=== PATIENT | male | born 1940 | race Caucasian/White ===

== ENCOUNTER 2023-10-24 20:38 | Emergency (ER) | payer MEDICARE, SELFPAY ==
[2023-10-24 20:42] VITALS: BP 151/63
[2023-10-24] MEDS: MOTRIN 600 MG PO (20:53)
[2023-10-24 21:29] LABS: % Basophils 0.6 % (0-2); % Eosinophils 0.9 % (0-6); % Immature Granulocytes 0.3 % (0-0.5); % Lymphocytes 8.3 % (20.5-51.1); % Neutrophils 82.9 % (42.2-75.2); Absolute Eosinophils 0.1 10^3/uL (0-0.7); Absolute Lymphocytes 0.6 10^3/uL (1.2-3.4); Absolute Monocytes 0.5 10^3/uL (0.1-0.6); Absolute Neutrophils 5.7 10^3/uL (1.4-6.5); Hematocrit 36.1 % (39.0-52.0); Mean Corp Hgb Conc. 33.2 g/dL (33.0-37.0); Mean Corpuscular Hgb 30.1 pg (27.0-31.0); Mean Corpuscular Volume 90.5 fL (80.0-94.0); Mean Platelet Volume 8.5 fL (7.4-10.4); Nucleated Red Blood Cells % 0 % (-); Platelet Count 243 10^3/uL (130-400); Red Blood Cell Count 3.99 10^6/uL (4.70-6.10); Red Cell Dist. Width 13.7 % (11.5-14.5); White Blood Cell Count 6.9 10^3/uL (4.8-10.8)
[2023-10-24 21:43] LABS: COVID-19 Antigen Negative (Negative); Lactic Acid 1.1 mmol/L (0.7-2.0)
[2023-10-24 21:57] LABS: ALT (SGPT) 30 U/L (0-50); AST (SGOT) 42 U/L (17-59); Albumin 4.5 g/dl (3.5-5.0); Alkaline Phosphatase 97 U/L (38-126); Blood Urea Nitrogen 21 mg/dl (9-20); Calcium 9.6 mg/dl (8.4-10.2); Carbon Dioxide 25 mmol/L (22-30); Glucose 122 mg/dl (70-99); Total Bilirubin 0.5 mg/dl (0.2-1.3); Total Protein 7.1 g/dl (6.3-8.2); eGFR 45.34
[2023-10-24 22:04] LABS: Chloride 101 mmol/L (98-107); Potassium 4.3 mmol/L (3.5-5.1); Sodium 137 mmol/L (135-145)
--- NOTE | 2023-10-24 23:19 | ED.GENMED ---
History of Present Illness
General
Chief Complaint: Fever
Source: patient
Exam Limitations: other
Time Seen by Provider: 10/24/23 23:07
Travel History
Have you had any contact with someone who has COVID-19?: No
Do you have any symptoms of coronavirus? Fever > 100 degrees, chills, cough, shortness of breath, sore throat, loss of taste or smell, muscle aches, or headache?: No
History of Present Illness
History of Present Illness:
This is a 83 year old male that comes in with c/o fever and feeling lightheaded. Son states that he has a tooth abscess and is taking antibiotics (Amoxicillin). States that he is to get the tooth out tomorrow. States that today he started with a
fever and told his son that he felt lightheaded. States that he has chills also today. Denies any chest pain, SOB, abd pain, nausea, vomiting, diarrhea, headache, urinary burning.
Past History
Past History
ED Past Medical History: None; Negative Asthma, HTN, Hypercholesterolemia or NIDDM
ED Past Surgical History: Cardiac (CABG)
Social History
Tobacco: Former smoker
Alcohol: None
Personal:
Living: with family
Review of Systems
Review of Systems
All Other Systems: ROS reviewed and negative except as documented in HPI and ROS
Constitutional: Reports fever and chills
EENT: Reports no symptoms
Respiratory: Denies cough or trouble breathing
Cardiac: Reports no symptoms; Denies chest pain
ABD/GI: Reports no symptoms; Denies abdominal pain, nausea, vomiting or diarrhea
: Reports no symptoms; Denies dysuria, frequency or urgency
Musculoskeletal: Reports no symptoms
Skin: Reports no symptoms
Neurological: Reports other (Lightheaded); Denies headache
Psychiatric: Reports no symptoms
Phy Exam
General Physical Exam
General Presentation: no apparent distress
General age: appears stated age
General Skin: warm and dry
General Habitus: elderly
General Mental: alert
General Hydration: appears well hydrated
ENT Exam
ENT Exam: TM's normal, pharynx normal and neck supple
Eye Exam
Eye Exam: EOMI
Cardiovascular Exam
Cardiovascular Exam: regular rate/rhythm, no edema, normal peripheral pulses and other (Murmur)
Pulmonary Exam
Pulmonary Exam: lungs clear, no respiratory distress, no rales, chest non tender, no crackles, no rhonchi, no wheezing and no cough
Gastrointestinal Exam
Gastrointestinal Exam: normal bowel sounds, non tender, soft, no organomegaly, no pulsatile mass and non distended
Musculoskeletal Exam
Musculoskeletal Exam: full ROM
Skin Exam
Skin Exam: normal color, warm/dry, no rash and no petechia
Psychiatric Exam
Psychiatric Exam: normal mood/affect
Course
Orders/Labs/Results
Orders:
Orders
10/24/23 20:47
CR Chest - 2 Views Urgent
Comment:
Reason For Exam: cough
10/24/23 20:50
Ibuprofen [Motrin] 600 mg PO NOW STA
10/24/23 21:13
COVID-19 Antigen Urgent
Source: Nasal Swab
Complete Blood Count/With Diff Urgent
Comprehensive Metabolic Panel Urgent
Lactic Acid Urgent
Blood Culture Urgent
TOÑA Source: Blood/Venous
Specimen Description:
Influenza A+B Rapid Molecular Urgent
TOÑA Source: Nasal Swab
Specimen Description:
10/24/23 23:19
0.9% Sodium Chloride 500 ml [Nss] 500 ml IV BOLUS
Acetaminophen [Tylenol] 1,000 mg PO NOW STA
10/24/23 23:32
Urinalysis Reflex To Culture Urgent
Date Specimen was Collected: 10/24/23
Time Specimen was Collected: 23:22
Urine Microscopic Reflex Cult Urgent
Abnormal Lab Results
10/24/23 10/24/23
21:13 23:32
RBC 3.99 L 10^6/uL
(4.70-6.10)
Hgb 12.0 L g/dL
(13.0-18.0)
Hct 36.1 L %
(39.0-52.0)
Absolute Lymphs (auto) 0.6 L 10^3/uL
(1.2-3.4)
Neutrophils % 82.9 H %
(42.2-75.2)
Lymphocytes % 8.3 L %
(20.5-51.1)
BUN 21 H mg/dl
(9-20)
Creatinine 1.5 H mg/dL
(0.7-1.3)
Glucose 122 H mg/dl
(70-99)
Ur Occult Blood Reflex Trace A
(Negative)
Urine RBC 3-6 A /HPF
(0-2)
Urine Bacteria (Reflex) Few A
(Negative)
10/24/23 21:13
10/24/23 21:13
H/H slightly low. Dehydration. Lactic acid normal at 1.1, COVID and influenza negative.
Vital Signs
Initial and Last Documented VS:
Initial Vital Signs
Temp Pulse Resp BP Pulse Ox
101.9 F H 80 20 151/63 95
10/24/23 20:42 10/24/23 20:42 10/24/23 20:42 10/24/23 20:42 10/24/23 20:42
Last Documented Vital Signs
Temp Pulse Resp BP Pulse Ox
101.9 F H 80 20 151/63 95
10/24/23 20:42 10/24/23 20:42 10/24/23 20:42 10/24/23 20:42 10/24/23 20:42
MDM/Problems Addressed
Differential Diagnosis Includes:
Viral syndrome. Dental abscess
MDM/Problems Addressed:
This is a 83 year old male that comes in with c/o fever and lightheadedness according to son. States that he has a dental abscess and is to have the tooth removed tomorrow. States that he started with Fever and chills today and said that he was
lightheaded.
Will check labs, Chest x-ray, COVID and influenza. Will also given IV fluids and Tylenol.
Back into see patient. Explained that his blood work only shows slight dehydration. His Lactic acid is normal along with his COVID and influenza. Patient's urine is negative. Feel that this may be related to his abscess tooth which he is to have
extracted tomorrow and is taking Amoxicillin for or is a viral syndrome. Will discharge patient home and have him follow up with the family doctor. Patient to continue to push the fluids and use Tylenol 1000mg every 6 hours for fever. Return with
any concerns.
Chronic conditions affecting care:
NA
Acute Exacerbation and/or Progression of Chronic Illness:
NA
*Pulse Oximetry
Patient hypoxic: no
*EKG
Interpreted by ED Provider?: NA
Rate: EKG- N/A
*Electronic Device Monitor Interpretation
Rate: Electronic Device Monitor- N/A
*Critical Care Note
Total Time (30-74mins, 75-104mins- exclusive of procedures): Not Applicable
ED Attending Note
-
Portions of this chart may have been created with voice recognition software.� Occasional wrong word or��sound alike� substitutions may have occurred due to the inherent limitations of voice recognition software.
Discharge Plan
Departure
Patient Disposition: Home (Routine Discharge)
Date of Disposition: 10/25/23
Time of Disposition: 00:29
Patient with high blood pressure during this ER visit?: Yes
Condition: Good
Covid-19: Negative COVID-19
Discharge Problem:
Fever, Viral syndrome
Instructions: Fever, Adult (DC), Viral Syndrome (DC), BLOOD PRESSURE
Referrals:
Sabina Garzon CRNP [Family Provider] - Follow up in 2-3 days
Activity Restrictions/Additional Instructions:
As discussed, your blood work shows slight Dehydration for which you were given IV fluids. You also had a fever here and received Tylenol. You are negative for COVID and Influenza and your chest x-ray was normal. Your urine is negative for
infection. This may be related to the abscess for which you are having the tooth removed tomorrow or a viral illness. Please increase your water intake to 8-8oz glasses daily. Tylenol 1000mg every 6 hours for fever. Follow up with the family doctor
for recheck. IF YOU HAVE ANY OTHER CONCERNS PLEASE RETURN TO THE EMERGENCY ROOM.
Interventions
Interventions:
*Risk Screen - Suicide Last Done: 10/24/23 20:42
*General Assessment Last Done: 10/24/23 20:42
*Neglect/Abuse Screening Last Done: 10/24/23 20:42
ED- Neurological Assessment Last Done: 10/24/23 22:59
[2023-10-24] MEDS: TYLENOL 1000 MG PO (23:24)
[2023-10-24] MEDS: NSS 500 IV (23:31)
[2023-10-24 23:43] LABS: Urine Albumin Negative (Neg - Trace); Urine Bilirubin Negative (Negative); Urine Character Clear (Clear); Urine Color Yellow; Urine Glucose Negative (Negative); Urine Ketone Negative (Negative); Urine Leukocyte Negative (Negative); Urine Nitrite Negative (Negative); Urine Occult Blood Trace (Negative); Urine Urobilinogen Negative (Neg - 1+)
[2023-10-25 00:06] LABS: Urine Bacteria Few (Negative); Urine Squamous Cell 0-2 /LPF (Few); Urine White Cell 0-2 /HPF (0-5)
== END 2023-10-25 00:54 | disposition home or self-care (01) ==
LOC: EMR 20:38
PROVIDERS: Clinical Nurse Specialist Family Health; Emergency Medicine; EMERGENCY PHYSICIAN Emergency Medicine; FAMILY PHYSICIAN Nurse Practitioner Primary Care
DX: R50.9 Fever, unspecified (principal); B34.9 Viral infection, unspecified; E86.0 Dehydration; Z87.891 Personal history of nicotine dependence; Z95.1 Presence of aortocoronary bypass graft
CPT/HCPCS: 99283; 71046; 80053; 81003; 81015; 83605; 85025; 87040; 87502; 87811

== ENCOUNTER 2023-11-14 16:23 | Observation (INO) | payer MEDICARE, SELFPAY ==
[2023-11-14] VITALS (10 sets, daily range): BP systolic 120–164; BP diastolic 47–71; PULSE 54; O2SAT 100; BMI 24.5
[2023-11-14 12:10] LABS: % Basophils 0.5 % (0-2); % Eosinophils 0.7 % (0-6); % Immature Granulocytes 0.2 % (0-0.5); % Lymphocytes 29.3 % (20.5-51.1); % Monocytes 7.1 % (1.7-9.3); % Neutrophils 62.2 % (42.2-75.2); Absolute Eosinophils 0.1 10^3/uL (0-0.7); Absolute Lymphocytes 2.4 10^3/uL (1.2-3.4); Absolute Monocytes 0.6 10^3/uL (0.1-0.6); Hematocrit 36.6 % (39.0-52.0); Hemoglobin 12.6 g/dL (13.0-18.0); Mean Corp Hgb Conc. 34.4 g/dL (33.0-37.0); Mean Corpuscular Volume 89.9 fL (80.0-94.0); Mean Platelet Volume 8.6 fL (7.4-10.4); Nucleated Red Blood Cells % 0 % (-); Platelet Count 391 10^3/uL (130-400); Red Blood Cell Count 4.07 10^6/uL (4.70-6.10); Red Cell Dist. Width 13.2 % (11.5-14.5)
[2023-11-14 12:13] LABS: Urine Albumin Trace (Neg - Trace); Urine Bilirubin 1+ (Negative); Urine Character Clear (Clear); Urine Color Yellow; Urine Glucose Negative (Negative); Urine Ketone 1+ (Negative); Urine Leukocyte Trace (Negative); Urine Nitrite Negative (Negative); Urine Occult Blood Negative (Negative); Urine Urobilinogen 1+ (Neg - 1+)
[2023-11-14 12:26] LABS: Urine Mucus Few; Urine Red Blood Cell 0-2 /HPF (0-2); Urine White Cell 0-2 /HPF (0-5)
[2023-11-14 12:27] LABS: Urine Bacteria Moderate (Negative)
[2023-11-14 12:29] LABS: ALT (SGPT) 25 U/L (0-50); AST (SGOT) 33 U/L (17-59); Albumin 4.5 g/dl (3.5-5.0); Alkaline Phosphatase 88 U/L (38-126); Blood Urea Nitrogen 44 mg/dl (9-20); Calcium 10.1 mg/dl (8.4-10.2); Carbon Dioxide 25 mmol/L (22-30); Chloride 102 mmol/L (98-107); Glucose 132 mg/dl (70-99); Potassium 4.9 mmol/L (3.5-5.1); Sodium 135 mmol/L (135-145); Total Bilirubin 0.6 mg/dl (0.2-1.3); Total Protein 7.4 g/dl (6.3-8.2); eGFR 41.96
--- NOTE | 2023-11-14 13:18 | ED.GENMED ---
History of Present Illness
General
Chief Complaint: Change in Mental Status
Source: patient and family (Patient's son)
Time Seen by Provider: 11/14/23 12:47
Travel History
Have you had any contact with someone who has COVID-19?: No
Do you have any symptoms of coronavirus? Fever > 100 degrees, chills, cough, shortness of breath, sore throat, loss of taste or smell, muscle aches, or headache?: No
History of Present Illness
History of Present Illness:
83-year-old male presents to the emergency room for evaluation of acute confusion. Patient showed up at his son's house unexpectedly. He seemed quite confused compared to his baseline. Patient resides at [facility] with his . 4 days ago
the patient's had to be moved to a higher level of care and so he has been on his own for the past 4 days. Patient's son has organizes medications so that he could take them properly and was with him last night where he seemed to be at his
baseline. However today he was unable to recall what his live. He is unaware that he is in the emergency room right now at [facility]. He does not know the date.
Past History
Past History
ED Past Medical History: None; Negative Asthma, HTN, Hypercholesterolemia or NIDDM
ED Past Surgical History: Cardiac (CABG)
Social History
Tobacco: Former smoker
Alcohol: None
Personal:
Living: with family
Phy Exam
Physical Exam
Physical Exam:
General: Awake, Alert, Oriented X1. No distress but somewhat confused
Vitals: unremarkable
Head: Atraumatic
Eyes: Pupils equal, EOMI
Throat: Airway intact, no exudates, dry mucosa
Neck: Trachea midline
Lungs: Clear and equal b/l
Heart: Regular rate, no murmurs
Abd: Soft, Nontender, No pulsatile mass
Neuro: Cranial nerves intact, muscle strength equal bilaterally, cerebellar exam normal
Skin: Warm, dry, no rash
Extremities: pulses equal b/l, no edema
Course
Orders/Labs/Results
Orders:
Orders
11/14/23 11:53
Complete Blood Count/With Diff Urgent
Comprehensive Metabolic Panel Urgent
TSH Routine
Comment: ADD OM
UA Reflex to Culture [Urinalysis Reflex To Culture] Urgent
Date Specimen was Collected: 11/14/23
Time Specimen was Collected: 11:52
Urine Microscopic Reflex Cult Urgent
Urine Culture Urgent
TOÑA Source: U
Specimen Description:
Date Specimen was Collected: 11/14/23
Time Specimen was Collected: 11:52
11/14/23 13:17
CT Head W/o Iv Contrast Urgent
Comment:
Reason For Exam: altered mental status
0.9% Sodium Chloride 500 ml [Nss] 500 ml IV BOLUS
11/14/23 13:40
COVID-19 Antigen Urgent
Source: Nasal Swab
Influenza A+B Rapid Molecular Urgent
TOÑA Source: Nasal Swab
Specimen Description:
11/14/23 Dinner
Regular
At Your Request: Full Participation
11/14/23 15:02
Case Management Consult ONCE
Case Management Consult: Discharge Planning
Physical Therapy Consult [Pt Eval And Treat] Urgent
Activity Level: As Tolerated
11/14/23 15:06
Electrocardiogram (*1) Urgent
Reason for Study: Bradycardia / Tachycardia
EKG- Treatment ONCE
11/14/23 16:00
Admit/Transfer Patient As Directed
Co-Sign Provider:
Level of Care: Observation services
Assign to:: Telemetry
Physician / Group: Jaspal
Diagnosis: Acute TME
Reason for Telemetry: Arrhythmia
Date to Stop Telemetry: 11/17/23
Time to Stop Telemetry: 11:00
11/14/23 16:02
Code Status As Directed
Resuscitation Status: Full Code
11/14/23 16:14
Add On- LAB Routine
Tests Added?: TSH
11/14/23 17:02
Acetaminophen [Tylenol] 650 mg PO Q6HPRN PRN
Carbidopa/Levodopa [Sinemet 25-100] 1 tablet PO TID
11/14/23 17:02
NEUROLOGY CONSULT Routine
Consulting Provider: Bob Zarate
Was physician already notified: Yes
Activity As Directed
Activity Level: With Assistance
Ot Eval And Treat Routine
Pt Eval And Treat Routine
Activity Level: With Assistance
DX Deep Vein Thrombosis Video Routine
11/14/23 18:00
Atorvastatin [Lipitor] 40 mg PO QPM
11/14/23 20:00
Heparin 5,000 units SC Q12
11/15/23 08:00
Aspirin Low Dose EC [Aspir Low (Enteric Coated)] 81 mg PO DAILY
Cholecalciferol (Vitamin D3) [VITAMIN D3 (cholecalciferol)] 25 mcg PO DAILY
Ferrous Sulfate [Feosol] 325 mg PO DAILY
Multivitamin [Theragran] 1 tablet PO DAILY
11/17/23 11:00
DC Protocol for Telemetry ONCE
Abnormal Lab Results
11/14/23
11:53
RBC 4.07 L 10^6/uL
(4.70-6.10)
Hgb 12.6 L g/dL
(13.0-18.0)
Hct 36.6 L %
(39.0-52.0)
BUN 44 H mg/dl
(9-20)
Creatinine 1.6 H mg/dL
(0.7-1.3)
Glucose 132 H mg/dl
(70-99)
TSH 0.39 L uIU/ml
(0.47-4.68)
Urine Ketones 1+ A
(Negative)
Urine Bilirubin 1+ A
(Negative)
Leukocyte Esterase Rfl Trace A
(Negative)
Urine Bacteria (Reflex) Moderate A
(Negative)
11/14/23 11:53
11/14/23 11:53
Vital Signs
Initial and Last Documented VS:
Initial Vital Signs
Temp Pulse Resp BP Pulse Ox
97.7 F 56 16 142/67 98
11/14/23 11:18 11/14/23 11:18 11/14/23 11:18 11/14/23 11:18 11/14/23 11:18
Last Documented Vital Signs
Temp Pulse Resp BP Pulse Ox
97.8 F 71 18 155/67 96
11/15/23 15:00 11/15/23 15:00 11/15/23 15:00 11/15/23 15:00 11/15/23 15:00
MDM/Problems Addressed
Differential Diagnosis Includes:
uti, electrolyte abnormality, dehydration, medication error
MDM/Problems Addressed:
Patient presents with increased confusion. Physical exam shows no focal neurologic deficits. Patient is clearly confused however. Workup here is not particularly remarkable. Head CT shows chronic changes but nothing concerning. Suspect
patient's decompensation is related to the fact his moved out of the Apt. 4 days ago. Discussed with family that we would ask case management to see if they could move the patient to higher level of care at [place]. If not then he will be
hospitalized until a more safe situation can be arranged.
*Radiology
Radiology exam reviewed: radiology read reviewed
*Pulse Oximetry
Patient hypoxic: no
*Critical Care Note
Total Time (30-74mins, 75-104mins- exclusive of procedures): Not Applicable
ED Attending Note
-
Portions of this chart may have been created with voice recognition software.� Occasional wrong word or��sound alike� substitutions may have occurred due to the inherent limitations of voice recognition software.
Discharge Plan
Departure
Patient Disposition: Admit
Date of Disposition: 11/14/23
Time of Disposition: 15:26
Admit to: Med/Surg
Presentation/result/management discussed w/ accepting MD/DO: Hospitalist
Condition: Fair
Discharge Problem:
Acute confusion
Interventions
Interventions:
*Risk Screen - Suicide Last Done: 11/14/23 11:18
*General Assessment Last Done: 11/14/23 11:18
*Neglect/Abuse Screening Last Done: 11/14/23 11:18
ED- Fall Risk Assessment Last Done: 11/14/23 16:20
*ED COVID-19 Vaccine History Last Done: 11/14/23 16:22
*Nursing Disposition Last Done: 11/14/23 16:55
ED- Pulmonary Assessment Last Done: 11/14/23 16:20
ED- Neurological Assessment Last Done: 11/14/23 16:20
ED- Cardiac Assessment Last Done: 11/14/23 16:20
ED Swallowing Screen Last Done: 11/14/23 16:20
Discharge Date and Time
Discharge Date/Time: 11/14/23 16:56
[2023-11-14] MEDS: NSS 500 IV (13:40)
[2023-11-14 14:11] LABS: COVID-19 Antigen Negative (Negative)
--- NOTE | 2023-11-14 15:30 | CM ---
CM met with patient and son in room. CM confirmed that patient lives in [place] at [facility]. His was just recently transferred to SNF 4 days ago. Patient drove to son's home. Patient was confused regarding why he was there. Patient did not understand
where he was currently (Emergency Room.) Pt will work with patient to make safety recommendations.
CM contact Cheryl at [facility] to discuss possible SNF placement. CM sent referral via [facility]. Patient will have to pend transfer to SNF awaiting insurance authorization. CM will await PT results.
--- NOTE | 2023-11-14 16:04 | HPS.HSE ---
Family Physician
-
Family Physician: NO INTERVIEW UNKNOWN
Chief Complaint
-
Confusion
History of Present Illness
83-year-old male here for increasing confusion over the past 24 hours according to family. Reportedly drove to his son's house unexpectedly and acted confused this morning. Was at his baseline last evening. Currently being worked up for
Parkinson's disease and cognitive impairment under the care of neurology. Was scheduled for outpatient brain MRI this evening.
His was recently sent to a higher level of care and he has been alone for the past 4 days which may have contributed to his confusion.
Medical History
Past Medical History
Past Medical History: Reports Other
Additional Past Medical History:
CAD
GERD
Aortic stenosis
Hypertension
Hyperlipidemia
GI bleed
Cataracts
COPD
Osteoarthritis
Chronic back pain
Past Surgical History: Reports Other
Additional Past Surgical History:
CABG
Spine surgery
Social History
Tobacco: Non-smoker
Alcohol: None
Drug: None
Personal:
Family History
Family History: Not pertinent
Allergies / Home Medications
Allergies reflects when Allergies were last updated in [employer].
Home Medications with original date entered in [employer]
Allergy/Medication List:
Allergies
Allergy/AdvReac Type Severity Reaction Status Date / Time
No Known Allergies Allergy Verified 11/14/23 11:16
Home Medications
aspirin 81 mg tablet,delayed release 81 mg PO DAILY Blood Clot Prevention/Tx 11/14/23
atenolol 25 mg tablet 25 mg PO DAILY Blood Pressure 11/14/23
atorvastatin 40 mg tablet (Lipitor) 40 mg PO QPM High Cholesterol 11/14/23
carbidopa 25 mg-levodopa 100 mg tablet 1 tab PO TID parkinson's disease 11/14/23
cholecalciferol (vitamin D3) 25 mcg (1,000 unit) tablet (Vitamin D3) 25 mcg PO DAILY Supplement 11/14/23
ferrous sulfate 325 mg (65 mg iron) tablet 325 mg PO DAILY Supplement 11/14/23
meloxicam 15 mg tablet 15 mg PO DAILY pain 11/14/23
omega [id number] oil 1,000 mg (120 mg-180 mg) capsule (Fish Oil) 1 cap PO DAILY Supplement 11/14/23
omeprazole 20 mg tablet,delayed release 20 mg PO DAILY Gastrointestinal Issue 11/14/23
therapeutic multivitamin 1 tab PO DAILY Supplement 11/14/23
Review of Systems
-
Unable to obtain full review of systems at this time due to: Acuity
History Source: Family
Physical Exam
Vital Signs
Vital Signs
Temp Pulse Resp BP Pulse Ox
97.7 F 48 20 120/47 98
11/14/23 11:18 11/14/23 14:15 11/14/23 12:15 11/14/23 14:00 11/14/23 14:15
Physical Exam
General: Well Developed, Well Nourished, No Apparent Distress and Comfortable
HEENT: NormoCephalic and Anicteric
Respiratory: Clear
Cardiac: S1/S2 and Regular Rhythm
GI: Soft, Non Tender and Non Distended
Genito-urinary: Deferred by me
Musculoskeletal: No Clubbing, No Cyanosis and No Edema
Skin: Warm and Dry
Neuro: Awake and Alert; No Oriented
Hematologic/Lymphatic: No Lymphadenopathy
Psych: Calm and Confused
Laboratory Results
-
11/14/23 11:53
11/14/23 11:53
Laboratory Results
Total Bilirubin 0.6 mg/dl (0.2-1.3) 11/14/23 11:53
AST 33 U/L (17-59) 11/14/23 11:53
ALT 25 U/L (0-50) 11/14/23 11:53
Alkaline Phosphatase 88 U/L (38-126) 11/14/23 11:53
Impression/Plan
-
Acute TME -suspect progression of underlying cognitive impairment. May have been exacerbated after his was recently moved to higher level of care leaving the patient alone by himself. Patient. Consult neurology. CT head without acute
disease. Check brain MRI as he was scheduled for this as an outpatient for workup of possible Parkinson's disease, dementia. Patient may need snf facility placement.
CAD/CABG -stable.
CKD 3B -creatinine 1.6, suspect this is his baseline.
Bradycardia -hold atenolol. Monitor on telemetry. Check TSH.
Hyperlipidemia -continue Lipitor.
Presumed Parkinson's disease -continue Sinemet.
Essential hypertension -stable.
Full code
Family updated at the bedside.
--- NOTE | 2023-11-14 17:01 | CM ---
Addendum entered by Iveth Whitfield RN 11/14/23 17:12:
Pending [facility] Authorization
[id number]
faxed clinical to [phone]
Original Note:
Patient has been accepted for placement at [facility] on 11/15. Pending [facility] authorization.
[2023-11-14] MEDS: SINEMET 25-100 1 TABLET PO ×2 (17:13→22:29)
[2023-11-14] MEDS: LIPITOR 40 MG PO (17:13)
[2023-11-14 17:29] LABS: TSH 0.39 uIU/ml (0.47-4.68)
[2023-11-14] MEDS: HEPARIN 5000 UNITS SC (20:04)
[2023-11-15] VITALS (7 sets, daily range): BP systolic 155–177; BP diastolic 63–93; PULSE 67–69; O2SAT 98–99
[2023-11-15] MEDS: APRESOLINE 5 MG IV (04:30)
[2023-11-15] MEDS: VITAMIN D3 (cholecalciferol) 25 MCG PO (07:19)
[2023-11-15] MEDS: HEPARIN 5000 UNITS SC (07:19)
[2023-11-15] MEDS: ASPIR LOW (ENTERIC COATED) 81 MG PO (07:19)
[2023-11-15] MEDS: SINEMET 25-100 1 TABLET PO ×2 (07:19→15:29)
[2023-11-15] MEDS: FEOSOL 325 MG PO (07:19)
[2023-11-15] MEDS: THERAGRAN 1 TABLET PO (07:19)
--- NOTE | 2023-11-15 07:50 | CON.NEURO ---
Neuro Assessment/Plan
Assessment
IMPRESSIONS/RECOMMENDATIONS:
Abrupt worsening in baseline cognitive difficulty
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
Differential diagnosis includes parkinsonian syndromes such as multiple system atrophy
Plan
continue carbidopa/levodopa 25/100 dose 3 times a day
Provide thiamine
Check orthostatic blood pressures
supportive care
No clear evidence patient would benefit from additional memory stabilization medications at this time
Will continue to follow pending results.
Consultation
Order
Date of Consultation: 11/15/23
Requesting Provider: Hospitalist
Reason for Consult: Decline in cognition
Subjective/Objective
Subjective Data
Date of Service: November 15, 2023
History provided by patient less than by family
Right-Handed
Began (prior to initial evaluation in this office):
>> 05/2023
Gait declining since 11/2022 with falling x 2
Sitting to standing is of a greater difficulty
Falling off to the left
Tremor also at same time
Previous testing: blood work
Previous evaluation: PCP
Prior medication(s): none
Side-effects with medications: none
Previous treatment(s): Physical therapy
Frequency: daily
Duration: chronic since 11/2022
Duration of symptom: N/A
Intensity: N/A
Etiology: unclear
Location: tremor in left more than right
Trigger(s): unclear to patient
Quality: N/A
Finances: not longer performing
Driving: continued
Associated symptom(s): gait dysfunction, lying to sitting, tremor, constipation, handwriting changes, constipation, memory issues
Does not include: anosmia, hallucinations, fine-motor manipulations, family history
Improving factors: patient unaware of any
Worsening factors: patient unaware of any
Unchanged by: Physical therapy
Severity: significant, affects quality of life
Today (09/12/2023)
Patient seen in the office with his fuzkxfpr-nd-tso. He is on carbidopa levodopa 1 tablet 3 times a day. Unsure how much this is helping. He did have labs completed. He did not have additional testing completed as recommended by Dr. Peterson. No
new falls. No hallucinations. He continues to have memory deficits. He does live at [facility] in independent living. He does help take care of his .
~~~~
Patient self is unable to [place] his own medical history. According to additional medical records and professional medical care providers, the patient had been in his usual state of health until last being evaluated in the evening by the patient's
son at which time the patient was described as being at his usual baseline. The patient then presented himself to the patient's son's home unexpectedly leading to hospitalization.
No known modifying factors. No known associated symptoms.
Objective Data
Vital Signs
Temp Pulse Resp BP Pulse Ox
36.6 C 57 16 170/70 98
11/15/23 03:30 11/15/23 04:30 11/15/23 03:30 11/15/23 04:30 11/15/23 03:30
Lab Results
11/14/23 11:53
11/14/23 11:53
Sodium 135 mmol/L (135-145) 11/14/23 11:53
Potassium 4.9 mmol/L (3.5-5.1) 11/14/23 11:53
BUN 44 mg/dl (9-20) H 11/14/23 11:53
Glucose 132 mg/dl (70-99) H 11/14/23 11:53
Calcium 10.1 mg/dl (8.4-10.2) 11/14/23 11:53
Patient Allergies
No Known Allergies Allergy (Verified 11/14/23 11:16)
Review of Systems
-
Unable to obtain full review of systems at this time due to: Dementia
History Source: Patient
All other systems: Reviewed and negative
Physical Exam
-
General: No Apparent Distress and Appears Stated Age
Eyes: Round OU, [place] Conjunctivae and No Ptosis
HEENT: Anicteric and Moist Mucous Membranes
Neck: Full Range of Motion
Respiratory: No Dyspnea
Cardiac: No JVD
GI: Non-distended
Skin: Unremarkable
Extremities: No Clubbing, No Cyanosis and No Edema
Psych: Negative Intact Judgement/Insight
Extended Neurological Exam
Mood & Affect: Mood Unremarkable and Affect Unremarkable
Attention Span & Concentration: Awake, Alert, Interactive and Severe Difficulty with 2 Step Request
Memory: Unable to Recall Personal History
Tremor: Head Tremor Absent, Distal, Intermittent and At Rest
Speech: Quality Unremarkable and Quantity Unremarkable
Cranial Nerve II: Left Eye: Pupillary Reactivity Unremarkable, Pupillary Size Unremarkable and Visual Hall Intact
Cranial Nerve II: Right Eye: Pupillary Reactivity Unremarkable, Pupillary Size Unremarkable and Visual Hall Intact
Cranial Nerves III, IV, : Extraocular Movement: Grossly Intact
Cranial Nerve VII: Facial Symmetry: Normal Facial Symmetry
Cranial Nerve VIII: Hearing: Unremarkable Hearing to Normal Conversational Volume
Cranial Nerve XI: Shoulder Shrug: Unremarkable
Cranial Nerve XII: Tongue Protusion: Midline
Muscle Strength, Overall: Spontaneously Moves (all ext)
Muscle Bulk & Tone: Bulk Unremarkable and Tone Unremarkable
Pronator Drift: No Drift in Upper Extremities
Coordination: Reaches for Objects without Difficulty
Gait & Station: Unable to Assess
Data Reviewed
-
Labs: Report Reviewed
Reviewed with: Physician, Nurse Practioner and Patient
Old Records: Summarized
Medications
-
Active Medications
Generic Name Dose Route Start Last Admin
Trade Name Freq PRN Reason Stop Dose Admin
Acetaminophen 650 mg 11/14/23 17:02
Acetaminophen 325 Mg Tablet PO 12/12/23 17:01
Q6HPRN PRN
mild pain/ fever>100.5F
Aspirin 81 mg 11/15/23 08:00 11/15/23 07:19
Aspirin 81 Mg (Enteric Coated) Tablet PO 12/13/23 07:59 81 mg
DAILY GARRY Administration
Atorvastatin Calcium 40 mg 11/14/23 18:00 11/14/23 17:13
Atorvastatin (Lipitor) 40 Mg Tablet PO 12/12/23 17:59 40 mg
QPM GARRY Administration
Carbidopa/Levodopa 1 tablet 11/14/23 17:02 11/15/23 07:19
Carbidopa (25 Mg)/Levodopa (100 Mg) Regular Release Tablet PO 12/12/23 17:01 1 tablet
TID GARRY Administration
Cholecalciferol 25 mcg 11/15/23 08:00 11/15/23 07:19
Cholecalciferol (Vitamin D3) 25 Mcg Tablet (1,000 Units) PO 12/13/23 07:59 25 mcg
DAILY GARRY Administration
Ferrous Sulfate 325 mg 11/15/23 08:00 11/15/23 07:19
Ferrous Sulfate 325 Mg Tablet PO 12/13/23 07:59 325 mg
DAILY GARRY Administration
Heparin Sodium 5,000 units 11/14/23 20:00 11/15/23 07:19
Heparin 5,000 Units/Ml 1 Ml Vial SC 12/12/23 19:59 5,000 units
Q12 GARRY Administration
Hydralazine HCl 5 mg 11/15/23 04:06 11/15/23 04:30
Hydralazine 20 Mg/Ml Vial IV 12/13/23 04:05 5 mg
Q4HPRN PRN Administration
sbp>170
Multivitamins Therapeutic 1 tablet 11/15/23 08:00 11/15/23 07:19
Multivitamin Tablet PO 12/13/23 07:59 1 tablet
DAILY GARRY Administration
Sodium Chloride 0 flush 11/14/23 18:00
Sodium Chloride 0.9% (Flush) Syringe IV 12/12/23 17:59
PER PROTOCOL GARRY
Home Medications
Medication Instructions Recorded
aspirin 81 mg tablet,delayed 81 mg PO DAILY Blood Clot 11/14/23
release Prevention/Tx
atenolol 25 mg tablet 25 mg PO DAILY Blood Pressure 11/14/23
atorvastatin 40 mg tablet (Lipitor) 40 mg PO QPM High Cholesterol 11/14/23
carbidopa 25 mg-levodopa 100 mg 1 tab PO TID parkinson's disease 11/14/23
tablet
cholecalciferol (vitamin D3) 25 25 mcg PO DAILY Supplement 11/14/23
mcg (1,000 unit) tablet (Vitamin
D3)
ferrous sulfate 325 mg (65 mg 325 mg PO DAILY Supplement 11/14/23
iron) tablet
meloxicam 15 mg tablet 15 mg PO DAILY pain 11/14/23
omega 0-dwp-fbr-fish oil 1,000 mg 1 cap PO DAILY Supplement 11/14/23
(120 mg-180 mg) capsule (Fish Oil)
omeprazole 20 mg tablet,delayed 20 mg PO DAILY Gastrointestinal 11/14/23
release Issue
therapeutic multivitamin 1 tab PO DAILY Supplement 11/14/23
Past History
Past History
ED Past Medical History: CAD, COPD, GERD, HTN, Hypercholesterolemia, NIDDM and Other (GI bleed, Chronic back pain, osteoarthritis); Negative Asthma
ED Past Surgical History: Cardiac (CABG)
Social History
Tobacco: Former smoker
Alcohol: None
Personal:
Living: with family
--- NOTE | 2023-11-15 10:27 | CM ---
Patient auth approved by Janey at [facility]; Auth #[id number] 11/15-11/17/23 Please fax clincials to [phone] Manager Mechanical Sabina Gil. CM will review with patient and update physician. CM will call for discharge planning needs.
--- NOTE | 2023-11-15 10:52 | W.PN.HOSP.TC ---
Addendum entered and electronically signed by William Shay DO 11/15/23 14:22:
Brain MRI completed. Shows chronic neurodegenerative changes consistent with Alzheimer's disease. No acute stroke noted.
I spoke with, Dr. Peterson, he recommends outpatient follow-up.
Updated son on the phone. Patient medically stable for discharge today to [facility] for SNF.
Case management aware.
Original Note:
Today's Communication/Plan
-
Brain MRI
Neurology consult
Assessment / Plan
Assessment / Plan
Gen-awake, alert, confused
HEENT-NC, AT, anicteric, clear oral mm
Neck-supple
CV-reg, no M, +S1/S2
Lungs-clear B/L
Abd-soft, NT, ND
Ext-no edema
Musculoskeletal-no cyanosis, clubbing
Skin-warm and dry
Neuro-grossly non-focal
Psych-calm, cooperative
Acute TME -suspect progression of underlying cognitive impairment.� May have been exacerbated after his was recently moved to higher level of care leaving the patient alone by himself.� Awaiting brain MRI. Neurology consulted.
CAD/CABG -stable.
CKD 3B -creatinine 1.6, suspect this is his baseline.
Bradycardia -hold atenolol.� Monitor on telemetry.� TSH 0.39. Heart rate currently stable around 70.
Hyperlipidemia -continue Lipitor.
Presumed Parkinson's disease -continue Sinemet.
Essential hypertension -stable.
Full code
Dispo -anticipate discharge to SNF when stable.
Anticipated Discharge: Within 24 hours
Subjective/Interval History
-
Date of Service: November 15, 2023
Patient seen and examined. Sitting in the chair. Finished breakfast. Remains confused. Not oriented.
Objective Data
-
Vital Signs:
Vital Signs
Temp Pulse Resp BP Pulse Ox
97.4 F 61 14 158/73 99
11/15/23 08:04 11/15/23 08:04 11/15/23 08:04 11/15/23 08:04 11/15/23 08:04
I&O
11/14/23 11/15/23 11/16/23
06:59 06:59 06:59
Intake Total 360 / 360
Output Total 110 / 110
Balance 250 / 250
Review of Systems
-
Unable to obtain full review of systems at this time due to: Acuity
History Source: Patient
All other systems: Reviewed and negative
--- NOTE | 2023-11-15 10:57 | CM ---
CM provided patient with WALTERS letter.
--- NOTE | 2023-11-15 14:06 | CM ---
Addendum entered by Marysol Weiner 11/15/23 14:41:
Please fax to [phone]/call [phone], ambulance for 6pm
Addendum entered by Marysol Weiner 11/15/23 14:29:
Patient son updated. Patient is here as OBS/WALTERS form given to patient CM will email to patient son [email or web address].
Original Note:
BRITTNEY spoke with Janey/Patrick from [facility] who stated that patient was approved for 11/15-11/17 at subacute level I and the office would call to confirm discharge. Auth is [id number], next review date 11/17 fax updated clinicals to [phone].
CM called to Robert and information provided to Cheryl albright.
--- NOTE | 2023-11-15 14:24 | W.DS.TRANS ---
DC Summary - Winch Operator
-
Discharge Instructions:
Discharge Diagnosis/Procedures Dementia, bradycardia
Diet Regular
Activity As tolerated
Driving Restrictions No driving
Bathing Restrictions None
Stop these medications: Stop atenolol due to bradycardia
Instructions:
Stand-Alone Forms:
Changes to Home Medications: Yes
Discharge Medications:
DC Medications w/original date entered in [facility]
aspirin 81 mg tablet,delayed release 81 mg PO DAILY Blood Clot Prevention/Tx 11/14/23
atorvastatin 40 mg tablet (Lipitor) 40 mg PO QPM High Cholesterol 11/14/23
carbidopa 25 mg-levodopa 100 mg tablet 1 tab PO TID parkinson's disease 11/14/23
cholecalciferol (vitamin D3) 25 mcg (1,000 unit) tablet (Vitamin D3) 25 mcg PO DAILY Supplement 11/14/23
ferrous sulfate 325 mg (65 mg iron) tablet 325 mg PO DAILY Supplement 11/14/23
omega 2-bgl-csz-fish oil 1,000 mg (120 mg-180 mg) capsule (Fish Oil) 1 cap PO DAILY Supplement 11/14/23
omeprazole 20 mg tablet,delayed release 20 mg PO DAILY Gastrointestinal Issue 11/14/23
therapeutic multivitamin 1 tab PO DAILY Supplement 11/14/23
thiamine HCl (vitamin B1) 100 mg tablet 100 mg PO DAILY #0 tabs 11/15/23
Home Medication Changes
Stop atenolol
Pending Results: No
[2023-11-15] MEDS: VITAMIN B1 100 MG PO (15:29)
[2023-11-15] MEDS: FLUZONE HIGH-DOSE QUAD 2023-24 0.699999999999999956 ML IM (15:30)
[2023-11-15] MEDS: PREVNAR 20 0.5 ML IM (15:30)
[2023-11-15] MEDS: LIPITOR 40 MG PO (17:08)
== END 2023-11-15 18:31 ==
LOC: 3 WEST ACU 16:23
PROVIDERS: ADMITTING PHYSICIAN Hospitalist; EMERGENCY PHYSICIAN Emergency Medicine; OTHER PHYSICIAN Psychiatry & Neurology Neurology
DX: G30.9 Alzheimer's disease, unspecified (principal); F02.80 Dementia in other diseases classified elsewhere, unspecified severity, without behavioral disturbance, psychotic disturbance, mood disturbance, and anxiety; G92.8 Other toxic encephalopathy; I35.0 Nonrheumatic aortic (valve) stenosis; N18.32 Chronic kidney disease, stage 3b; R90.82 White matter disease, unspecified; I12.9 Hypertensive chronic kidney disease with stage 1 through stage 4 chronic kidney disease, or unspecified chronic kidney disease; E78.00 Pure hypercholesterolemia, unspecified; J44.9 Chronic obstructive pulmonary disease, unspecified; M19.90 Unspecified osteoarthritis, unspecified site; I25.10 Atherosclerotic heart disease of native coronary artery without angina pectoris; K21.9 Gastro-esophageal reflux disease without esophagitis; G89.29 Other chronic pain; R00.1 Bradycardia, unspecified; M50.321 Other cervical disc degeneration at C4-C5 level; I65.29 Occlusion and stenosis of unspecified carotid artery; M50.021 Cervical disc disorder at C4-C5 level with myelopathy; M48.02 Spinal stenosis, cervical region; Z95.1 Presence of aortocoronary bypass graft; Z79.82 Long term (current) use of aspirin; Z87.891 Personal history of nicotine dependence; Z79.1 Long term (current) use of non-steroidal anti-inflammatories (NSAID); Z23 Encounter for immunization; Z11.52 Encounter for screening for COVID-19
CPT/HCPCS: 70450; 70551; 80053; 81003; 81015; 84443; 85025; 87070; 87086; 87502; 87811; 90662; 90677; 93005; 96360; 97116; 97166; 99285; G0008; G0009; G0378

== ENCOUNTER → 2023-12-16 14:25 | Outpatient (REF) | payer OTHER, MEDICARE, SELFPAY | LOC: RAD 14:25 | PROVIDERS: ATTENDING PHYSICIAN Internal Medicine Cardiovascular Disease; FAMILY PHYSICIAN Nurse Practitioner Primary Care | DX: R59.0 Localized enlarged lymph nodes (principal); I65.23 Occlusion and stenosis of bilateral carotid arteries; I25.10 Atherosclerotic heart disease of native coronary artery without angina pectoris; I65.29 Occlusion and stenosis of unspecified carotid artery; I73.9 Peripheral vascular disease, unspecified | CPT/HCPCS: 76536; 93880; 93922; 93925 ==

== ENCOUNTER → 2023-12-17 10:49 | Outpatient (REF) | payer OTHER, MEDICARE, SELFPAY ==
[2023-12-17 11:27] LABS: % Basophils 0.8 % (0-2); % Eosinophils 1.6 % (0-6); % Immature Granulocytes 0.4 % (0-0.5); % Monocytes 7.6 % (1.7-9.3); % Neutrophils 62.6 % (42.2-75.2); Absolute Basophils 0.1 10^3/uL (0-0.2); Absolute Eosinophils 0.1 10^3/uL (0-0.7); Absolute Lymphocytes 2.2 10^3/uL (1.2-3.4); Absolute Monocytes 0.6 10^3/uL (0.1-0.6); Hematocrit 35.1 % (39.0-52.0); Mean Corp Hgb Conc. 34.2 g/dL (33.0-37.0); Mean Corpuscular Hgb 30.4 pg (27.0-31.0); Mean Corpuscular Volume 88.9 fL (80.0-94.0); Mean Platelet Volume 8.9 fL (7.4-10.4); Nucleated Red Blood Cells % 0 % (-); Platelet Count 267 10^3/uL (130-400); Red Blood Cell Count 3.95 10^6/uL (4.70-6.10); Red Cell Dist. Width 14.5 % (11.5-14.5)
[2023-12-17 11:32] LABS: Urine Albumin Negative (Neg - Trace); Urine Bilirubin Negative (Negative); Urine Character Clear (Clear); Urine Color Yellow; Urine Glucose Negative (Negative); Urine Ketone Negative (Negative); Urine Leukocyte Negative (Negative); Urine Nitrite Negative (Negative); Urine Occult Blood Negative (Negative); Urine Urobilinogen Negative (Neg - 1+)
[2023-12-17 11:52] LABS: Iron 104 ug/dl (49-181)
[2023-12-17 12:02] LABS: Percent Saturation 32 % (20-50); Total Iron Binding Capacity 320 ug/dl (261-462)
[2023-12-17 12:29] LABS: Ferritin 84.1 ng/ml (17.9-464.0)
== END ==
LOC: REG 10:49
PROVIDERS: ATTENDING PHYSICIAN Nurse Practitioner Family; FAMILY PHYSICIAN Nurse Practitioner Primary Care
DX: R58 Hemorrhage, not elsewhere classified (principal); R39.9 Unspecified symptoms and signs involving the genitourinary system; K59.00 Constipation, unspecified; R19.5 Other fecal abnormalities; D64.9 Anemia, unspecified
CPT/HCPCS: 36415; 81003; 82728; 83540; 83550; 85025

== ENCOUNTER 2024-02-11 17:28 | Emergency (ER) | payer MEDICARE, SELFPAY ==
--- NOTE | 2024-02-11 17:34 | ED.GENMED ---
History of Present Illness
General
Chief Complaint: Weakness
Source: patient
Exam Limitations: none
Time Seen by Provider: 02/11/24 17:32
History of Present Illness
History of Present Illness:
See MDM
Past History
Past History
ED Past Medical History: CAD, COPD, GERD, HTN, Hypercholesterolemia, NIDDM and Other (GI bleed, Chronic back pain, osteoarthritis); Negative Asthma
ED Past Surgical History: Cardiac (CABG)
Social History
Tobacco: Former smoker
Alcohol: None
Personal:
Living: with family
Phy Exam
Physical Exam
Physical Exam:
See MDM
Course
Orders/Labs/Results
Orders:
Orders
02/11/24 17:32
Electrocardiogram (*1) Urgent
Reason for Study: Fatigue / Weakness
EKG- Treatment ONCE
0.9% Sodium Chloride 1000 ml [Nss] 1,000 ml IV BOLUS
Acetaminophen [Tylenol] 1,000 mg PO NOW STA
02/11/24 17:40
COVID-19 Antigen Urgent
Source: Nasal Swab
Complete Blood Count/With Diff Urgent
Comprehensive Metabolic Panel Urgent
Lactic Acid Q4H
Comment: CANCEL 2nd LACTIC ACID IF 1st LACTIC ACID IS LESS THAN 2
Blood Culture Q30M
TOÑA Source: Blood/Venous
Specimen Description:
Blood Culture Q30M
TOÑA Source: Blood/Venous
Specimen Description:
Influenza A+B Rapid Molecular Urgent
TOÑA Source: Nasal Swab
Specimen Description:
02/11/24 18:10
CR Chest - 2 Views Urgent
Comment:
Reason For Exam: SOB, Cough
02/11/24 19:26
Azithromycin [Zithromax] 500 mg PO NOW STA
Abnormal Lab Results
02/11/24
17:40
RBC 3.88 L 10^6/uL
(4.70-6.10)
Hgb 11.8 L g/dL
(13.0-18.0)
Hct 34.9 L %
(39.0-52.0)
Absolute Neuts (auto) 7.5 H 10^3/uL
(1.4-6.5)
Absolute Lymphs (auto) 1.1 L 10^3/uL
(1.2-3.4)
Absolute Monos (auto) 0.9 H 10^3/uL
(0.1-0.6)
Neutrophils % 78.5 H %
(42.2-75.2)
Lymphocytes % 11.7 L %
(20.5-51.1)
Carbon Dioxide 20 L mmol/L
(22-30)
BUN 35 H mg/dl
(9-20)
Creatinine 1.5 H mg/dL
(0.7-1.3)
Glucose 153 H mg/dl
(70-99)
02/11/24 17:40
02/11/24 17:40
Vital Signs
Initial and Last Documented VS:
Initial Vital Signs
Temp Pulse Resp BP Pulse Ox
100.6 F H 96 18 114/61 96
02/11/24 17:35 02/11/24 17:35 02/11/24 17:35 02/11/24 17:35 02/11/24 17:35
Last Documented Vital Signs
Temp Pulse Resp BP Pulse Ox
100.6 F H 88 19 124/60 93
02/11/24 17:35 02/11/24 19:05 02/11/24 19:05 02/11/24 18:00 02/11/24 18:30
MDM/Problems Addressed
Differential Diagnosis Includes:
HPI and MDM Narrative:
83-year-old male presenting with generalized weakness, fever and cough. This has been ongoing for the past several days or symptoms. On arrival, patient found to be febrile.
Given the fever and cough, will obtain chest x-ray and obtain COVID testing. Patient is clinically dehydrated. Will give IV fluids
Physical exam
General: Weak and frail
HEENT: protecting airway. Dry mucous membranes
Neck: supple
CV: No evidence of cyanosis. Regular rate and rhythm
Resp: No accessory muscle use. Lungs clear
Abd: Non-distended
Extremities: No deformities
Neuro: alert
Psych: Flat affect
Skin: Warm
Problems Addressed including Acute and Chronic Conditions affecting care:
1. Generalized weakness
Acuity: acute
Prognosis: stable
Details: Will look for metabolic derangements. Will give IV fluids for clinical dehydration
2. Cough
Acuity: acute
Prognosis: stable
Details: Will obtain chest x-ray and COVID test
Updates
Blood work without clinical significance. Patient and son at bedside feel comfortable with him going home. Chest x-ray is clear. I did question the hyperinflated findings and whether or not he has this smoking history. Patient states he used to
smoke but denies prior history of COPD. Although no obvious pneumonia is seen, will start azithromycin with concern for underlying COPD and worsening cough
Prior to being discharged, patient eating and drinking.
Differential Diagnosis (but not limited to): Viral URI, pneumonia, COVID, dehydration
Testing considered: Urinalysis
Drug therapy (if applicable): OTC meds, please see d/c instruction regarding Rx drugs
Amount and/or Complexity of Data Reviewed
Clinical info obtained from: Patient
External data reviewed: N/A
Labs I independently reviewed (but not limited to): White blood cell count normal
Radiology: X-ray independently reviewed: Chest x-ray clear
Pulse Ox: not hypoxic
EKG independently reviewed: Sinus rhythm, normal axis, no STEMI
Regulatory Services Consultant: sinus rhythm
Critical Care: N/A
Risk of Complication:
Social Determinants of health: Good social support
Discussed with other providers: N/A
Escalation of Care includes Admit/Obs: After being observed in the Emergency Department, pt stable for discharge.
Occasional wrong word or 'sound a like' substitutions may have occurred due to the inherent limitations of voice recognition software. Read the chart carefully and recognize, using context, where substitutions have occurred.
*Critical Care Note
Total Time (30-74mins, 75-104mins- exclusive of procedures): Not Applicable
ED Attending Note
-
Portions of this chart may have been created with voice recognition software.� Occasional wrong word or��sound alike� substitutions may have occurred due to the inherent limitations of voice recognition software.
Discharge Plan
Departure
Patient Disposition: Home (Routine Discharge)
Date of Disposition: 02/11/24
Time of Disposition: 19:28
Patient with high blood pressure during this ER visit?: No
Discharge Problem:
URI (upper respiratory infection)
Prescriptions:
New
azithromycin 250 mg tablet
250 mg PO DAILY 4 Days Qty: 4 0RF
No Action
atorvastatin [Lipitor] 40 mg Tablet
40 mg PO QPM
carbidopa-levodopa 25-100 mg Tablet
1 tab PO TID
aspirin 81 mg Tablet,Delayed Release (Dr/Ec)
81 mg PO DAILY
therapeutic multivitamin Tablet
1 tab PO DAILY
ferrous sulfate 325 mg (65 mg iron) Tablet
325 mg PO DAILY
cholecalciferol (vitamin D3) [Vitamin D3] 25 mcg (1,000 unit) Tablet
25 mcg PO DAILY
omeprazole 20 mg Tablet,Delayed Release (Dr/Ec)
20 mg PO DAILY
omega 6-hvj-cqd-fish oil [Fish Oil] 1,000 mg (120 mg-180 mg) Capsule
1 cap PO DAILY
thiamine HCl (vitamin B1) 100 mg Tablet
100 mg PO DAILY Qty: 0 0RF
Referrals:
Sabina Garzon CRNP [Family Provider] -
Activity Restrictions/Additional Instructions:
Please return for any worsening symptoms.
You may return at any time if you have further concerns.
Please follow up with your doctor at the first available appointment, preferably this week.
Thank you for choosing [facility].
Interventions
Interventions:
*Risk Screen - Suicide Last Done: 02/11/24 17:35
*General Assessment Last Done: 02/11/24 17:35
*Neglect/Abuse Screening Last Done: 02/11/24 17:35
ED- Cardiac Assessment Last Done: 02/11/24 18:16
ED- Neurological Assessment Last Done: 02/11/24 18:16
ED- Pulmonary Assessment Last Done: 02/11/24 18:16
Discharge Date and Time
Print Language: WELSH
[2024-02-11 17:35] VITALS: BP 114/61
[2024-02-11 17:36] VITALS: BP 114/61
[2024-02-11] MEDS: NSS 1000 IV (17:39)
[2024-02-11 17:55] LABS: % Basophils 0.3 % (0-2); % Eosinophils 0.2 % (0-6); % Immature Granulocytes 0.1 % (0-0.5); % Lymphocytes 11.7 % (20.5-51.1); % Monocytes 9.2 % (1.7-9.3); % Neutrophils 78.5 % (42.2-75.2); Absolute Lymphocytes 1.1 10^3/uL (1.2-3.4); Absolute Monocytes 0.9 10^3/uL (0.1-0.6); Absolute Neutrophils 7.5 10^3/uL (1.4-6.5); Hematocrit 34.9 % (39.0-52.0); Hemoglobin 11.8 g/dL (13.0-18.0); Mean Corp Hgb Conc. 33.8 g/dL (33.0-37.0); Mean Corpuscular Hgb 30.4 pg (27.0-31.0); Mean Corpuscular Volume 89.9 fL (80.0-94.0); Mean Platelet Volume 9.1 fL (7.4-10.4); Nucleated Red Blood Cells % 0 % (-); Platelet Count 250 10^3/uL (130-400); Red Blood Cell Count 3.88 10^6/uL (4.70-6.10); Red Cell Dist. Width 14.3 % (11.5-14.5); White Blood Cell Count 9.6 10^3/uL (4.8-10.8)
[2024-02-11 18:00] VITALS: BP 124/60
[2024-02-11 18:07] LABS: ALT (SGPT) 30 U/L (0-50); AST (SGOT) 32 U/L (17-59); Albumin 4.2 g/dl (3.5-5.0); Alkaline Phosphatase 74 U/L (38-126); Blood Urea Nitrogen 35 mg/dl (9-20); Calcium 9.9 mg/dl (8.4-10.2); Carbon Dioxide 20 mmol/L (22-30); Chloride 104 mmol/L (98-107); Glucose 153 mg/dl (70-99); Potassium 4.3 mmol/L (3.5-5.1); Sodium 137 mmol/L (135-145); Total Bilirubin 0.5 mg/dl (0.2-1.3); Total Protein 6.9 g/dl (6.3-8.2); eGFR 45.34
[2024-02-11 18:26] LABS: COVID-19 Antigen Negative (Negative)
[2024-02-11 18:36] LABS: Lactic Acid 1.9 mmol/L (0.7-2.0)
[2024-02-11] MEDS: ZITHROMAX 500 MG PO (19:33)
[2024-02-11 19:34] VITALS: BP 123/69
== END 2024-02-11 19:40 | disposition home or self-care (01) ==
LOC: EMR 17:28
PROVIDERS: EMERGENCY PHYSICIAN Student in an Organized Health Care Education/Training Program; FAMILY PHYSICIAN Nurse Practitioner Primary Care
DX: J06.9 Acute upper respiratory infection, unspecified (principal); Z87.891 Personal history of nicotine dependence
CPT/HCPCS: 99285; 96360; 71046; 80053; 83605; 85025; 87040; 87502; 87811; 93005

== ENCOUNTER → 2024-02-28 07:05 | Outpatient (REF) | payer MEDICARE, SELFPAY | LOC: RAD 07:05 | PROVIDERS: ATTENDING PHYSICIAN Nurse Practitioner Family; FAMILY PHYSICIAN Nurse Practitioner Primary Care | DX: R39.11 Hesitancy of micturition (principal) | CPT/HCPCS: 76770 ==

== ENCOUNTER → 2024-03-08 10:25 | Outpatient (REF) | payer MEDICARE, SELFPAY | LOC: RAD 10:25 | PROVIDERS: ATTENDING PHYSICIAN Nurse Practitioner Primary Care | DX: R13.10 Dysphagia, unspecified (principal); K21.9 Gastro-esophageal reflux disease without esophagitis | CPT/HCPCS: 74221 ==

== ENCOUNTER → 2024-03-16 13:33 | Outpatient (REF) | payer MEDICARE, SELFPAY | LOC: MRI 3T 13:33 | PROVIDERS: ATTENDING PHYSICIAN Physician Assistant; FAMILY PHYSICIAN Nurse Practitioner Primary Care | DX: M54.16 Radiculopathy, lumbar region (principal) | CPT/HCPCS: 72148 ==

== ENCOUNTER 2024-08-02 15:15 | Inpatient (IN) | payer MEDICARE, SELFPAY ==
[2024-07-31 20:24] VITALS: BP 160/74; BMI 24.7
[2024-07-31 20:27] VITALS: BP 160/74
[2024-07-31 20:48] LABS: % Basophils 0.2 % (0-2); % Eosinophils 0.5 % (0-6); % Immature Granulocytes 0.2 % (0-0.5); % Lymphocytes 6.2 % (20.5-51.1); % Monocytes 4.5 % (1.7-9.3); % Neutrophils 88.4 % (42.2-75.2); Absolute Eosinophils 0.1 10^3/uL (0-0.7); Absolute Lymphocytes 0.8 10^3/uL (1.2-3.4); Absolute Monocytes 0.5 10^3/uL (0.1-0.6); Absolute Neutrophils 10.7 10^3/uL (1.4-6.5); Hematocrit 36.4 % (39.0-52.0); Hemoglobin 12.7 g/dL (13.0-18.0); Mean Corp Hgb Conc. 34.9 g/dL (33.0-37.0); Mean Corpuscular Hgb 30.6 pg (27.0-31.0); Mean Corpuscular Volume 87.7 fL (80.0-94.0); Mean Platelet Volume 8.7 fL (7.4-10.4); Nucleated Red Blood Cells % 0 % (-); Platelet Count 243 10^3/uL (130-400); Red Blood Cell Count 4.15 10^6/uL (4.70-6.10); Red Cell Dist. Width 12.9 % (11.5-14.5); White Blood Cell Count 12.1 10^3/uL (4.8-10.8)
[2024-07-31 21:00] VITALS: BP 155/60
[2024-07-31 21:04] LABS: ALT (SGPT) 21 U/L (0-50); AST (SGOT) 36 U/L (17-59); Albumin 4.9 g/dl (3.5-5.0); Alkaline Phosphatase 87 U/L (38-126); Blood Urea Nitrogen 38 mg/dl (9-20); Carbon Dioxide 20 mmol/L (22-30); Chloride 102 mmol/L (98-107); Estimated Creatinine Clearance 34 ml/min; Glucose 126 mg/dl (70-99); Potassium 4.6 mmol/L (3.5-5.1); Sodium 140 mmol/L (135-145); Total Bilirubin 0.7 mg/dl (0.2-1.3); Total Protein 7.1 g/dl (6.3-8.2); eGFR 45.06
--- NOTE | 2024-07-31 21:35 | ED.GENMED ---
History of Present Illness
General
Chief Complaint: Fever
Time Seen by Provider: 07/31/24 21:27
History of Present Illness
History of Present Illness:
TIME OF INITIAL ENCOUNTER: 9:45 PM
HPI: Patient comes in from independent living at [facility] [place] with general unwell feeling. He reportedly was short of breath earlier and then developed shaking. He has increasing left low back/pelvic pain. He vomited upon arrival here. He has a
history of Parkinson's.
EXAM:
GENERAL: The patient is ill-appearing with rigors, he is febrile, he vomited upon arrival
HEENT: Moist oral mucosa
CARDIOVASCULAR: No murmurs, tachycardic heart rate, regular rhythm, No chest wall tenderness
PULMONARY: No respiratory distress, breath sounds are clear and equal
ABDOMEN: Soft with no peritoneal signs, no tenderness
NEUROLOGIC: Fair strength all extremities, no coordination deficits
BACK: Some decreased active range of motion of the thoracolumbar spine, no midline T or L-spine tenderness and no pelvis tenderness
PSYCHIATRIC: Appeared somewhat confused upon arrival with limited insight and judgement
EXTREMITIES: Nontender, no edema, moves all extremities equally
SKIN: No rash, no lesions
NUMBER AND COMPLEXITY OF PROBLEMS ADDRESSED AT THE ENCOUNTER
� Chronic conditions affecting care: High blood pressure, hyperlipidemia, Parkinson's, CABG
� Acute Exacerbation and/or Progression of Chronic Illness: This is an acute problem
� Differential Diagnosis includes: Sepsis, UTI, pneumonia, infected stone, epidural abscess less likely based on the location of the back pain
AMOUNT AND/OR COMPLEXITY OF DATA TO BE REVIEWED AND ANALYZED
� I performed an independent evaluation of and my interpretation is:
EKG: Sinus 102, nonspecific ST abnormality
CT: CAT scan of the abdomen pelvis did not show any clear abnormality
X-rays: Chest x-ray shows no definite pneumonia
Laboratory Studies: White count 12.1, hemoglobin 12.7, bicarb 20, BUN 38, creatinine 1.5, trace ketones but no sign of infection, COVID-negative, lactic 1.3
Other:
� Review of other/old records: I reviewed records, creatinine is near baseline, BUN also near baseline
� Clinical information was obtained by an independent historian: I spoke to the son at bedside
� Prescriptions/Medications Considered but not given:
� Further testing considered but not performed:
RISK OF COMPLICATIONS AND/OR MORBIDITY OR MORTALITY OF PATIENT MANAGEMENT
� Social determinants of health affecting care: Resides at [facility]
� Discussion with other providers: Dr. Tee for admission
� Escalation of care including admission/observation vs risk of discharge considered:
ANY OTHER UPDATES:
12 AM: Fever persists but some improvement with his overall appearance
12:45 AM: Considered discharge and had discussion with his son at bedside. The patient's white count is elevated given his advanced age, we felt it would be best for him to be kept for further observation. Held off on antibiotics for now as urine
and chest x-ray negative.
Past History
Past History
ED Past Medical History: CAD, COPD, GERD, HTN, Hypercholesterolemia, NIDDM and Other (GI bleed, Chronic back pain, osteoarthritis); Negative Asthma
ED Past Surgical History: Cardiac (CABG)
Social History
Tobacco: Former smoker
Alcohol: None
Personal:
Living: with family
Phy Exam
Physical Exam
Physical Exam:
See HPI
Course
Orders/Labs/Results
Orders:
Orders
07/31/24 20:31
Electrocardiogram (*1) Urgent
Reason for Study: Shortness of Breath
EKG- Treatment ONCE
07/31/24 20:38
Complete Blood Count/With Diff Urgent
Comprehensive Metabolic Panel Urgent
07/31/24 21:25
Acetaminophen [Tylenol] 1,000 mg PO NOW STA
CR Chest - 2 Views Urgent
Comment:
Reason For Exam: fever
07/31/24 21:32
Lactic Acid Q4H
Comment: CANCEL 2nd LACTIC ACID IF 1st LACTIC ACID IS LESS THAN 2
Blood Culture Q30M
TOÑA Source: Blood/Venous
Specimen Description:
Blood Culture Q30M
TOÑA Source: Blood/Venous
Specimen Description:
07/31/24 21:36
COVID-19 Antigen Urgent
Source: Nasal Swab
Influenza A+B Rapid Molecular Urgent
TOÑA Source: Nasal Swab
Specimen Description:
07/31/24 21:42
Acetaminophen [Tylenol/Feverall] 650 mg RECTAL NOW STA
07/31/24 21:43
CT Abd/pel Without Iv Or Oral Urgent
Comment:
Reason For Exam: L back pain fever vomiting
0.9% Sodium Chloride 1000 ml [Nss] 1,000 ml IV BOLUS
Acetaminophen [Tylenol/Feverall] 650 mg .ROUTE .STK-MED ONE
07/31/24 21:51
Urinalysis Reflex To Culture Urgent
Date Specimen was Collected: 07/31/24
Time Specimen was Collected: 21:49
08/01/24 00:06
Acetaminophen [Tylenol] 325 mg PO NOW STA
Abnormal Lab Results
07/31/24 07/31/24
20:38 21:51
WBC 12.1 H 10^3/uL
(4.8-10.8)
RBC 4.15 L 10^6/uL
(4.70-6.10)
Hgb 12.7 L g/dL
(13.0-18.0)
Hct 36.4 L %
(39.0-52.0)
Absolute Neuts (auto) 10.7 H 10^3/uL
(1.4-6.5)
Absolute Lymphs (auto) 0.8 L 10^3/uL
(1.2-3.4)
Neutrophils % 88.4 H %
(42.2-75.2)
Lymphocytes % 6.2 L %
(20.5-51.1)
Carbon Dioxide 20 L mmol/L
(22-30)
BUN 38 H mg/dl
(9-20)
Creatinine 1.5 H mg/dL
(0.7-1.3)
Glucose 126 H mg/dl
(70-99)
Urine Ketones Trace A
(Negative)
07/31/24 20:38
07/31/24 20:38
Vital Signs
Initial and Last Documented VS:
Initial Vital Signs
Temp Pulse Resp BP Pulse Ox
101.7 F H 114 25 160/74 97
07/31/24 20:24 07/31/24 20:24 07/31/24 20:24 07/31/24 20:24 07/31/24 20:24
Last Documented Vital Signs
Temp Pulse Resp BP Pulse Ox
99.9 F 100 22 105/89 94
08/01/24 00:33 08/01/24 00:33 08/01/24 00:33 08/01/24 00:00 08/01/24 00:00
*Critical Care Note
Total Time (30-74mins, 75-104mins- exclusive of procedures): Not Applicable
ED Attending Note
-
Portions of this chart may have been created with voice recognition software.� Occasional wrong word or��sound alike� substitutions may have occurred due to the inherent limitations of voice recognition software.
Discharge Plan
Departure
Patient Disposition: Admit
Date of Disposition: 08/01/24
Time of Disposition: 00:48
Presentation/result/management discussed w/ accepting MD/DO: Hospitalist
Discharge Problem:
SIRS (systemic inflammatory response syndrome)
Prescriptions:
No Action
atorvastatin [Lipitor] 40 mg Tablet
40 mg PO QPM
carbidopa-levodopa 25-100 mg Tablet
1 tab PO TID
aspirin 81 mg Tablet,Delayed Release (Dr/Ec)
81 mg PO DAILY
therapeutic multivitamin Tablet
1 tab PO DAILY
ferrous sulfate 325 mg (65 mg iron) Tablet
325 mg PO DAILY
cholecalciferol (vitamin D3) [Vitamin D3] 25 mcg (1,000 unit) Tablet
25 mcg PO DAILY
omeprazole 20 mg Tablet,Delayed Release (Dr/Ec)
20 mg PO DAILY
omega 1-sug-yty-fish oil [Fish Oil] 1,000 mg (120 mg-180 mg) Capsule
1 cap PO DAILY
thiamine HCl (vitamin B1) 100 mg Tablet
100 mg PO DAILY Qty: 0 0RF
Referrals:
Sabina Garzon CRNP [Family Provider] -
Interventions
Interventions:
*Risk Screen - Suicide Last Done: 07/31/24 20:30
*General Assessment Last Done: 07/31/24 20:30
*Neglect/Abuse Screening Last Done: 07/31/24 20:30
*ED COVID-19 Vaccine History Last Done: 07/31/24 20:30
ED- Neurological Assessment Last Done: 07/31/24 20:40
ED-Skin Assessment Last Done: 07/31/24 20:40
Discharge Date and Time
Print Language: POLISH
[2024-07-31] MEDS: TYLENOL/FEVERALL 650 MG RECTAL (21:44)
[2024-07-31] MEDS: NSS 1000 IV (21:48)
[2024-07-31 21:49] LABS: Lactic Acid 1.3 mmol/L (0.7-2.0)
[2024-07-31 21:56] LABS: Urine Albumin Negative (Neg - Trace); Urine Bilirubin Negative (Negative); Urine Character Clear (Clear); Urine Color Yellow; Urine Glucose Negative (Negative); Urine Ketone Trace (Negative); Urine Leukocyte Negative (Negative); Urine Nitrite Negative (Negative); Urine Occult Blood Negative (Negative); Urine Urobilinogen Negative (Neg - 1+)
[2024-07-31 21:58] LABS: COVID-19 Antigen Negative (Negative)
[2024-07-31 22:00] VITALS: BP 138/55
[2024-07-31 23:00] VITALS: BP 127/55
[2024-08-01] VITALS (12 sets, daily range): BP systolic 82–139; BP diastolic 50–98; PULSE 76–91; O2SAT 99; BMI 22.7
[2024-08-01] MEDS: TYLENOL 325 MG PO (00:23)
--- NOTE | 2024-08-01 02:09 | HPS.HSE ---
Family Physician
-
Family Physician: Sabina Garzon
Chief Complaint
-
Back Pain, Chills
History of Present Illness
Patient is an 84y M with PMH significant for Parkinson's Disease, ASCVD and hypertension who presents to ED complaining of back pain, confusion and chills. Patient lives in independent living facility. He reportedly complained of low back pain
and was somewhat confused and was sent to the ED for further evaluation. In the ED, patient had fever to 102.7. He complained of lower back discomfort hat was midline / bilateral. No sore throat, headache, cough, dyspnea, abdominal pain, diarrhea
or urinary complaints. Patient states that he did have a single episode of emesis earlier this evening.
He denies any recent falls or trauma.
Patient states that he was more confused earlier - but he feels that he is better now.
He continues to have some difficulty describing recent events / symptoms.
Medical History
Past Medical History
Past Medical History: Reports Other
Additional Past Medical History:
ASCVD
GERD
Aortic stenosis
Hypertension
Hyperlipidemia
GI bleed
Cataracts
COPD
Osteoarthritis
Chronic back pain
Past Surgical History: Reports Other
Additional Past Surgical History:
CABG
Spine surgery
Social History
Tobacco: Non-smoker
Alcohol: None
Drug: None
Personal:
Family History
Family History: Not pertinent
Allergies / Home Medications
Allergies reflects when Allergies were last updated in [facility].
Home Medications with original date entered in [facility]
Allergy/Medication List:
Allergies
Allergy/AdvReac Type Severity Reaction Status Date / Time
No Known Allergies Allergy Verified 11/14/23 11:16
Home Medications
aspirin 81 mg tablet,delayed release 81 mg PO DAILY Blood Clot Prevention/Tx 11/14/23
atorvastatin 40 mg tablet (Lipitor) 40 mg PO QPM High Cholesterol 11/14/23
carbidopa 25 mg-levodopa 100 mg tablet 1 tab PO TID parkinson's disease 11/14/23
cholecalciferol (vitamin D3) 25 mcg (1,000 unit) tablet (Vitamin D3) 25 mcg PO DAILY Supplement 11/14/23
ferrous sulfate 325 mg (65 mg iron) tablet 325 mg PO DAILY Supplement 11/14/23
omega 4-eid-epp-fish oil 1,000 mg (120 mg-180 mg) capsule (Fish Oil) 1 cap PO DAILY Supplement 11/14/23
omeprazole 20 mg tablet,delayed release 20 mg PO DAILY Gastrointestinal Issue 11/14/23
therapeutic multivitamin 1 tab PO DAILY Supplement 11/14/23
thiamine HCl (vitamin B1) 100 mg tablet 100 mg PO DAILY #0 tabs 11/15/23
Review of Systems
-
History Source: Patient
A 12 point ROS was completed and negative except as noted: Yes
Constitutional: Reports Fever, Fatigue and Chills
EENT: Denies Sore Throat
Respiratory: Denies Cough or Trouble Breathing
Cardiac: Denies Chest Pain or Palpitations
Abdomen/GI: Reports Nausea and Vomiting; Denies Abdominal Pain, Diarrhea, Constipated, Bloody Stools or Black Stools
: Denies Dysuria, Frequency or Flank Pain
Musculoskeletal: Reports Other (Back Pain); Denies Joint Pain or Edema
Neurological: Denies Dizzy or Headache
Psych: Reports Other (Confusion)
Physical Exam
Vital Signs
Vital Signs
Temp Pulse Resp BP Pulse Ox
99.9 F 93 16 96/50 96
08/01/24 00:33 08/01/24 01:45 08/01/24 01:45 08/01/24 01:00 08/01/24 01:45
Physical Exam
General: Other (84y M in no acute distress.)
HEENT: Moist mucous membranes and PERRLA
Respiratory: Clear; No Wheezes, Rales or Rhonchi
Cardiac: S1/S2 and Regular Rhythm; No Murmur
GI: Soft, Non Tender, Non Distended and Normal Bowel Sounds
Musculoskeletal: No Clubbing, No Cyanosis, No Edema and Other (No focal tenderness over the lumbar spina / paraspinal muscles. No CVAT.)
Neuro: Awake and Alert
Laboratory Results
-
07/31/24 20:38
07/31/24 20:38
Laboratory Results
Lactic Acid Cancelled 08/01/24 01:30
Total Bilirubin 0.7 mg/dl (0.2-1.3) 07/31/24 20:38
AST 36 U/L (17-59) 07/31/24 20:38
ALT 21 U/L (0-50) 07/31/24 20:38
Alkaline Phosphatase 87 U/L (38-126) 07/31/24 20:38
Impression/Plan
-
A/P: Patient is an 84y M with PMH significant for ASCVD, Parkinson's disease, hypertension and COPD who presents to ED complaining of back pain, chills and confusion.
Acute TME
Fever
- Observe overnight for further evaluation and treatment.
- Patient with increased confusion and fever in the ED to 102.7.
- No evident source of fever.
- Only current complaint is low back pain.
- Scoliosis / spinal abnormality in the area of the pain.
- Given fever / TME - will check inflammatory markers, MRI spine.
- Follow-up culture data.
- Monitor for any new / focal complaints.
- Follow fever curve.
- Observe off of any abx pending culture data, etc.
Parkinson's Disease
- Acute confusion likely due to fever as noted above.
- Continue current Sinemet dosing with no changes.
ASCVD
- Stable. No complaints of chest pain, dyspnea, etc.
- Continue current med regimen.
CKD III
- Stable. Renal function is at / near known baseline.
- Follow for any changes.
GERD
- Stable. Continue PPI.
DVT Prophylaxis: SCDs
Code Status: Full
[2024-08-01] MEDS: TYLENOL 650 MG PO ×2 (04:18→21:14)
[2024-08-01] MEDS: NSS 1000 IV ×2 (04:20→16:05)
--- NOTE | 2024-08-01 04:30 | PTCARENOTE ---
Received patient from ER. stable vitals. AAOx2. c/o moderate low back pain. very forgetful. Bed alarm on for safety. POC reviewed with patient
[2024-08-01 07:53] LABS: Hematocrit 31.1 % (39.0-52.0); Hemoglobin 10.8 g/dL (13.0-18.0); Mean Corp Hgb Conc. 34.7 g/dL (33.0-37.0); Mean Corpuscular Hgb 31.7 pg (27.0-31.0); Mean Corpuscular Volume 91.2 fL (80.0-94.0); Mean Platelet Volume 8.8 fL (7.4-10.4); Platelet Count 200 10^3/uL (130-400); Red Blood Cell Count 3.41 10^6/uL (4.70-6.10); Red Cell Dist. Width 12.8 % (11.5-14.5); White Blood Cell Count 9.4 10^3/uL (4.8-10.8)
[2024-08-01 08:26] LABS: Erythrocyte Sed Rate 11 mm/hour (0-20)
[2024-08-01] MEDS: SINEMET 25-100 1 TABLET PO ×3 (08:43→21:14)
[2024-08-01] MEDS: VITAMIN B1 100 MG PO (08:43)
[2024-08-01] MEDS: PROTONIX 40 MG PO (08:43)
[2024-08-01] MEDS: ASPIR LOW (ENTERIC COATED) 81 MG PO (08:43)
[2024-08-01 08:46] LABS: Blood Urea Nitrogen 40 mg/dl (9-20); Calcium 8.9 mg/dl (8.4-10.2); Carbon Dioxide 19 mmol/L (22-30); Chloride 106 mmol/L (98-107); Estimated Creatinine Clearance 34 ml/min; Glucose 97 mg/dl (70-99); Potassium 4.4 mmol/L (3.5-5.1); Sodium 140 mmol/L (135-145); eGFR 45.06
[2024-08-01 09:03] LABS: TSH Reflex To Free T4 0.09 uIU/ml (0.47-4.68)
--- NOTE | 2024-08-01 14:05 | W.PN.UPDATE ---
Update Note
Progress Note Update
Continue to follow fever workup
Follow-up MRI spine
� Initiate antibiotics if recurrent fever although possibly secondary to viral illness
--- NOTE | 2024-08-01 16:46 | CM ---
CM met with Andrews at bedside to complete IA. Admitted with fevers, attempting to determine the souce.
Andrews lives at [facility]. At my visit he seemed to be somewhat confused/forgetful. Andrews has been using a cane for ambulation, His son and daughter live close by and are supportive.
CM to follow to coordinate discharge planning needs.
PCP: Sabina Garzon
Pharmacy: [facility]
[2024-08-01] MEDS: LIPITOR 40 MG PO (17:16)
--- NOTE | 2024-08-01 17:40 | W.PN.UPDATE ---
Update Note
Progress Note Update
Pt is a lot of pain.
Renal insuff
Pain not better with tylenol
Will give a dose of Oxy
[2024-08-01] MEDS: ROXICODONE 5 MG PO (17:47)
[2024-08-02] VITALS (8 sets, daily range): BP systolic 118–161; BP diastolic 60–98; PULSE 71–90; O2SAT 98; BMI 23.2
[2024-08-02] MEDS: NSS 1000 IV ×2 (01:21→11:27)
[2024-08-02 08:12] LABS: Hematocrit 31.5 % (39.0-52.0); Mean Corp Hgb Conc. 34.9 g/dL (33.0-37.0); Mean Corpuscular Hgb 32.2 pg (27.0-31.0); Mean Corpuscular Volume 92.1 fL (80.0-94.0); Mean Platelet Volume 9.3 fL (7.4-10.4); Platelet Count 185 10^3/uL (130-400); Red Blood Cell Count 3.42 10^6/uL (4.70-6.10); White Blood Cell Count 5.2 10^3/uL (4.8-10.8)
[2024-08-02 08:52] LABS: ALT (SGPT) 25 U/L (0-50); AST (SGOT) 36 U/L (17-59); Albumin 3.5 g/dl (3.5-5.0); Alkaline Phosphatase 68 U/L (38-126); Blood Urea Nitrogen 24 mg/dl (9-20); Calcium 8.8 mg/dl (8.4-10.2); Carbon Dioxide 21 mmol/L (22-30); Chloride 106 mmol/L (98-107); Estimated Creatinine Clearance 43 ml/min; Glucose 78 mg/dl (70-99); Potassium 4.3 mmol/L (3.5-5.1); Sodium 140 mmol/L (135-145); Total Bilirubin 0.2 mg/dl (0.2-1.3); Total Protein 5.5 g/dl (6.3-8.2); eGFR 58.89
[2024-08-02] MEDS: SINEMET 25-100 1 TABLET PO ×3 (09:34→21:26)
[2024-08-02] MEDS: PROTONIX 40 MG PO (09:34)
[2024-08-02] MEDS: ASPIR LOW (ENTERIC COATED) 81 MG PO (09:34)
[2024-08-02] MEDS: VITAMIN B1 100 MG PO (09:35)
[2024-08-02 12:30] LABS: Urine Albumin Negative (Neg - Trace); Urine Bilirubin Negative (Negative); Urine Character Clear (Clear); Urine Color Yellow; Urine Glucose Negative (Negative); Urine Ketone Negative (Negative); Urine Leukocyte Negative (Negative); Urine Nitrite Negative (Negative); Urine Occult Blood Negative (Negative); Urine Urobilinogen Negative (Neg - 1+)
--- NOTE | 2024-08-02 13:12 | W.PN.HOSP.TC ---
Today's Communication/Plan
-
pain control
f/u cultures
Assessment / Plan
Assessment / Plan
Physical Exam
General: Other (84y M in no acute distress.)
HEENT: Moist mucous membranes and PERRLA
Respiratory: Clear; No Wheezes, Rales or Rhonchi
Cardiac: S1/S2 and Regular Rhythm; No Murmur
GI: Soft, Non Tender, Non Distended and Normal Bowel Sounds
Musculoskeletal: No Clubbing, No Cyanosis, No Edema and Other (No focal tenderness over the lumbar spina / paraspinal muscles. No CVAT.)
Neuro: Awake and Alert
A/P: Patient is an 84y M with PMH significant for ASCVD, Parkinson's disease, hypertension and COPD who presents to ED complaining of back pain, chills and confusion.
Acute TME
Fever
- Patient with increased confusion and fever in the ED to 102.7.
- No evident source of fever.
- Only current complaint is low back pain. - no infection/discitis
- Follow-up culture data.
- Monitor for any new / focal complaints.
- Follow fever curve.
- Observe off of any abx pending culture data, etc.
-Cont to monitor blood cultures
#Back pain
-no infection
-severe spinal stenosis
-no lumbar radiculopathy
-PT/OT
Parkinson's Disease
- Acute confusion likely due to fever as noted above.
- Continue current Sinemet dosing with no changes.
- appears to be alert and not confused now
ASCVD
- Stable. No complaints of chest pain, dyspnea, etc.
- Continue current med regimen.
CKD III
- Stable. Renal function is at / near known baseline.
- Follow for any changes.
GERD
- Stable. Continue PPI.
DVT Prophylaxis: hsq
Code Status: Full
Anticipated Discharge: Within 24 hours
Subjective/Interval History
-
Date of Service: August 02, 2024
No acute events
Objective Data
-
Labs:
Laboratory Results
08/02/24
07:10
WBC 5.2
Hgb 11.0 L
Hct 31.5 L
Plt Count 185
Sodium 140
Potassium 4.3
Chloride 106
Carbon Dioxide 21 L
BUN 24 H
Creatinine 1.2
Glucose 78
Calcium 8.8
Total Bilirubin 0.2
AST 36
ALT 25
Alkaline Phosphatase 68
Vital Signs:
Vital Signs
Temp Pulse Resp BP Pulse Ox
98.1 F 79 18 140/60 98
08/02/24 11:20 08/02/24 11:20 08/02/24 11:20 08/02/24 11:20 08/02/24 11:20
I&O
08/01/24 08/02/24 08/03/24
06:59 06:59 06:59
Intake Total 1740 / 1740
Output Total 975 / 975
Balance 765 / 765
Data Reviewed
-
CT Scan: Image personally visualized and interpreted and Report Reviewed by me
MRI: Image personally visualized and interpreted
Labs: Labs Reviewed by me
--- NOTE | 2024-08-02 15:15 | CM ---
CM met with Andrews at bedside to discuss discharge plans; SELENA provided, signed, and a copy was placed in his chart.
Andrews lives at [facility] in the Independent Living Apartments and will return there at discharge. PT recommended home PT services, however Andrews is not currently agreeable to home care at this time. He is hopeful that he will be able to manage
without any additional services.
Plan: CM to follow for discharge back to [facility]. Home Care services to be revisited pending PT updates.
--- NOTE | 2024-08-02 15:44 | PTCARENOTE ---
Pt AAO to self/birthdate/'hospital' only; confused conversation/forgetful. Occ arm tremors noted. DONATO well, OOB to chair/ambulates to BR with assist x1/cane; pt unsteady w/OOb activity; denies dizziness. Fall prec maintained. Pt denies back
discomfort at present. VSS. Telemetry:NSR. On room air- pulse ox 96%, no SOB noted. Abd soft, rounded, rosanna PO well. Voiding clear yellow urine in urinal/BR. Afebrile; skin intact. IVF's NSS @ 100 ml/hr infusing via Lt wrist site without sx of
infiltration; to be dc'd when current bag completed. Resting comfortably at present. Will continue to monitor.
[2024-08-02] MEDS: FLOMAX 0.4 MG PO (16:09)
[2024-08-02] MEDS: HEPARIN 5000 UNITS SC (16:10)
[2024-08-02] MEDS: LIPITOR 40 MG PO (17:54)
[2024-08-02] MEDS: MOTRIN 600 MG PO (21:25)
[2024-08-03] MEDS: HEPARIN 5000 UNITS SC ×2 (00:54→08:46)
[2024-08-03 03:45] VITALS: BP 142/70
[2024-08-03 05:39] VITALS: BMI 22.7
[2024-08-03 07:12] VITALS: BP 149/69
[2024-08-03 07:44] LABS: Hematocrit 31.4 % (39.0-52.0); Hemoglobin 11.1 g/dL (13.0-18.0); Mean Corp Hgb Conc. 35.4 g/dL (33.0-37.0); Mean Corpuscular Hgb 31.6 pg (27.0-31.0); Mean Corpuscular Volume 89.5 fL (80.0-94.0); Mean Platelet Volume 9.2 fL (7.4-10.4); Platelet Count 187 10^3/uL (130-400); Red Blood Cell Count 3.51 10^6/uL (4.70-6.10); Red Cell Dist. Width 12.6 % (11.5-14.5); White Blood Cell Count 4.7 10^3/uL (4.8-10.8)
[2024-08-03] MEDS: ASPIR LOW (ENTERIC COATED) 81 MG PO (08:45)
[2024-08-03] MEDS: SINEMET 25-100 1 TABLET PO (08:45)
[2024-08-03] MEDS: PROTONIX 40 MG PO (08:45)
[2024-08-03] MEDS: MOTRIN 600 MG PO (08:45)
[2024-08-03] MEDS: FLOMAX 0.4 MG PO (08:45)
[2024-08-03] MEDS: VITAMIN B1 100 MG PO (08:45)
[2024-08-03 09:14] LABS: ALT (SGPT) 23 U/L (0-50); AST (SGOT) 48 U/L (17-59); Albumin 3.5 g/dl (3.5-5.0); Alkaline Phosphatase 72 U/L (38-126); Blood Urea Nitrogen 18 mg/dl (9-20); Calcium 9.2 mg/dl (8.4-10.2); Carbon Dioxide 24 mmol/L (22-30); Chloride 106 mmol/L (98-107); Estimated Creatinine Clearance 46 ml/min; Glucose 91 mg/dl (70-99); Potassium 4.1 mmol/L (3.5-5.1); Sodium 140 mmol/L (135-145); Total Bilirubin 0.2 mg/dl (0.2-1.3); Total Protein 5.6 g/dl (6.3-8.2); eGFR > 60.00
--- NOTE | 2024-08-03 11:12 | CM ---
Addendum entered by Sandie Carlos 08/03/24 12:47:
Spoke with patient son Andrews & he states the patient's caregiver will transport patient back to [facility].
Left a message with Sunita at [facility].
Original Note:
Patient seen at bedside
Patient resident at [facility]
Spoke with Sunita at [facility] & updated.
PT recommending HH - options reviewed - [facility] referral placed. Laura notified.
Attempted to call daughter, but voicemail full.
PLAN: [facility] with visiting nurse.
[2024-08-03 11:45] VITALS: BP 130/65
[2024-08-03 11:46] VITALS: BP 108/51; BP 130/65; BP 134/58; PULSE 77; PULSE 83; PULSE 87
--- NOTE | 2024-08-03 11:58 | VNURNOTE ---
Home Health Liaison spoke with patient's daughter Nenita to discuss [facility] nurse/therapy, visits, schedule and homebound status. She is agreeable and understands that visits at home will be 2-3 x per week to assess and teach medical management. She
would like PT and OT only at this point, declining visiting nurse. She stated the patient had PT earlier this year. She is aware that [facility] will contact them for start of care in 1-2 days after discharge from . [facility] referral completed in [facility].
--- NOTE | 2024-08-03 12:28 | W.PN.HOSP.TC ---
Addendum entered and electronically signed by Taqueria Flores MD 08/05/24 16:07:
SIRS -Resolved
Addendum entered and electronically signed by Taqueria Flores MD 08/05/24 15:41:
[id number]
Original Note:
Today's Communication/Plan
-
focus on comfort
back pain control with ortho outpatient
tamsulosin for possible bph
f/u pcp, ortho outpatient
Assessment / Plan
Assessment / Plan
Physical Exam
General: Other (84y M in no acute distress.)
HEENT: Moist mucous membranes and PERRLA
Respiratory: Clear; No Wheezes, Rales or Rhonchi
Cardiac: S1/S2 and Regular Rhythm; No Murmur
GI: Soft, Non Tender, Non Distended and Normal Bowel Sounds
Musculoskeletal: No Clubbing, No Cyanosis, No Edema and Other (No focal tenderness over the lumbar spina / paraspinal muscles. No CVAT.)
Neuro: Awake and Alert
A/P: Patient is an 84y M with PMH significant for ASCVD, Parkinson's disease, hypertension and COPD who presents to ED complaining of back pain, chills and confusion.
Fever
�Resolved on its own
- No evident source of fever.
- Only current complaint is low back pain. - no infection/discitis
- Follow-up culture data.�No growth to date
- Monitor for any new / focal complaints.
- Follow fever curve.
#Back pain
-no infection
-severe spinal stenosis, discitis
-no lumbar radiculopathy
-PT/OT
� Pain control
Parkinson's Disease
#Severe chronic neurodegenerative disease noted in the past
- Acute confusion likely due to worsening dementia
- Continue current Sinemet dosing with no changes.
ASCVD
- Stable. No complaints of chest pain, dyspnea, etc.
- Continue current med regimen.
CKD III
- Stable. Renal function is at / near known baseline.
- Follow for any changes.
GERD
- Stable. Continue PPI.
DVT Prophylaxis: hsq
Code Status: Full
More than 30 minutes spent in discharge including
Final examination of the patient
Summarizing hospital stay
Instructions for continuing care to all relevant caregivers
Preparation of discharge records, prescriptions, and referral forms
Total time spent (35 in minutes):
Anticipated Discharge: Within 24 hours
Subjective/Interval History
-
Date of Service: August 03, 2024
No acute events
Objective Data
-
Labs:
Laboratory Results
08/03/24
07:18
WBC 4.7 L
Hgb 11.1 L
Hct 31.4 L
Plt Count 187
Sodium 140
Potassium 4.1
Chloride 106
Carbon Dioxide 24
BUN 18
Creatinine 1.1
Glucose 91
Calcium 9.2
Total Bilirubin 0.2
AST 48
ALT 23
Alkaline Phosphatase 72
Vital Signs:
Vital Signs
Temp Pulse Resp BP Pulse Ox
97.7 F 87 18 130/65 99
08/03/24 11:45 08/03/24 11:45 08/03/24 11:45 08/03/24 11:45 08/03/24 11:45
I&O
08/02/24 08/03/24 08/04/24
06:59 06:59 06:59
Intake Total 1740 / 1740 1900 / 1900
Output Total 975 / 975 2775 / 2775
Balance 765 / 765 -875 / -875
Review of Systems
-
Unable to obtain full review of systems at this time due to: Acuity
History Source: Patient
All other systems: Reviewed and negative
Data Reviewed
-
CT Scan: Image personally visualized and interpreted and Report Reviewed by me
MRI: Image personally visualized and interpreted
Labs: Labs Reviewed by me
--- NOTE | 2024-08-03 12:32 | W.DS.TRANS ---
DC Summary - [facility] Painter
-
Discharge Instructions:
Discharge Diagnosis/Procedures Febrile episode
Diet Low Cholesterol,Low Fat
Activity As tolerated
Instructions:
Stand-Alone Forms:
Changes to Home Medications: No
Discharge Medications:
DC Medications w/original date entered in [facility]
aspirin 81 mg tablet,delayed release 81 mg PO DAILY Blood Clot Prevention/Tx 11/14/23
atorvastatin 40 mg tablet (Lipitor) 40 mg PO QPM High Cholesterol 11/14/23
carbidopa 25 mg-levodopa 100 mg tablet 1 tab PO TID parkinson's disease 11/14/23
cholecalciferol (vitamin D3) 25 mcg (1,000 unit) tablet (Vitamin D3) 25 mcg PO DAILY Supplement 11/14/23
ferrous sulfate 325 mg (65 mg iron) tablet 325 mg PO DAILY Supplement 11/14/23
omega 9-qlb-vph-fish oil 1,000 mg (120 mg-180 mg) capsule (Fish Oil) 1 cap PO DAILY Supplement 11/14/23
omeprazole 20 mg tablet,delayed release 20 mg PO DAILY Gastrointestinal Issue 11/14/23
therapeutic multivitamin 1 tab PO DAILY Supplement 11/14/23
thiamine HCl (vitamin B1) 100 mg tablet 100 mg PO DAILY #0 tabs 11/15/23
tamsulosin 0.4 mg capsule 0.4 mg PO DAILY #0 caps 08/03/24
Home Medication Changes
tamsulosin 0.4 mg capsule 0.4 mg PO DAILY #0 caps 08/03/24
Pending Results: No
--- NOTE | 2024-08-03 15:22 | PN.CDI ---
CDI
- -
CDI:
Physician Documentation Request
Admit Date: 08/02/24 15:15
Dear Doctor Mark,
Please review the following and provide your response in the progress notes.
Clinical Indicators:
Pt admitted with Fever /TME
Documented per ED, ' He reportedly was short of breath earlier and then developed shaking. He has increasing left low back/pelvic pain. He vomited upon arrival here... SIRS (systemic inflammatory response syndrome)...'
WBC 12.1, Tmax 102.7,HR 126, Respirations 32
Please update the status of SIRS documented in ED:
SIRS -Resolved
SIRS-still being monitored/treated
SIRS -ruled out
Use of terms such as suspected, likely, concern for, or probable (associated with a specific diagnosis that is being evaluated, monitored, or treated as if it exists) are acceptable and can be coded in the inpatient setting, when documented at the
time of discharge.
Thank you,
Merlyn Cline RN
CDI Specialist
Roxie Text
Please use your independent medical judgment in providing your response.
== END 2024-08-03 16:15 | disposition home health service (06) | DRG 864 ==
LOC: 4 EAST ACU 15:15
PROVIDERS: Emergency Medicine; ADMITTING PHYSICIAN Hospitalist; ATTENDING PHYSICIAN Internal Medicine; EMERGENCY PHYSICIAN Emergency Medicine; FAMILY PHYSICIAN Nurse Practitioner Primary Care
DX: R50.9 Fever, unspecified (principal); R65.10 Systemic inflammatory response syndrome (SIRS) of non-infectious origin without acute organ dysfunction; R10.2 Pelvic and perineal pain; R11.10 Vomiting, unspecified; G20.A1 Parkinson's disease without dyskinesia, without mention of fluctuations; I12.9 Hypertensive chronic kidney disease with stage 1 through stage 4 chronic kidney disease, or unspecified chronic kidney disease; E78.00 Pure hypercholesterolemia, unspecified; F02.C0 Dementia in other diseases classified elsewhere, severe, without behavioral disturbance, psychotic disturbance, mood disturbance, and anxiety; I25.10 Atherosclerotic heart disease of native coronary artery without angina pectoris; K21.9 Gastro-esophageal reflux disease without esophagitis; I35.0 Nonrheumatic aortic (valve) stenosis; N18.30 Chronic kidney disease, stage 3 unspecified; E11.22 Type 2 diabetes mellitus with diabetic chronic kidney disease; E11.36 Type 2 diabetes mellitus with diabetic cataract; J44.9 Chronic obstructive pulmonary disease, unspecified; M19.90 Unspecified osteoarthritis, unspecified site; G89.29 Other chronic pain; M54.50 Low back pain, unspecified; R41.0 Disorientation, unspecified; M41.9 Scoliosis, unspecified; Z95.1 Presence of aortocoronary bypass graft; Z87.891 Personal history of nicotine dependence; Z79.82 Long term (current) use of aspirin; Z11.52 Encounter for screening for COVID-19
CPT/HCPCS: 71046; 72158; 74176; 80048; 80053; 81003; 83605; 84439; 84443; 85025; 85027; 85652; 86140; 87040; 87070; 87502; 87811; 93005; 97116; 97161; 97166; 99285; A9575

== ENCOUNTER → 2024-08-06 15:05 | Outpatient (REF) | payer MEDICARE, SELFPAY | LOC: RCS 15:05 | PROVIDERS: ATTENDING PHYSICIAN Nurse Practitioner Primary Care | DX: I35.0 Nonrheumatic aortic (valve) stenosis (principal) | CPT/HCPCS: 93306 ==

== ENCOUNTER → 2024-09-20 14:57 | Outpatient (REF) | payer MEDICARE, SELFPAY | LOC: HWRAD 14:57 | PROVIDERS: ATTENDING PHYSICIAN Nurse Practitioner Family; FAMILY PHYSICIAN Nurse Practitioner Primary Care | DX: R09.81 Nasal congestion (principal) | CPT/HCPCS: 70486 ==

== ENCOUNTER 2025-01-29 17:45 | Observation (INO) | payer MEDICARE, SELFPAY ==
[2025-01-29] VITALS (8 sets, daily range): BP systolic 78–150; BP diastolic 45–71; PULSE 75–83
--- NOTE | 2025-01-29 14:09 | ED.GENMED ---
History of Present Illness
General
Chief Complaint: Fall
Source: patient and family
Time Seen by Provider: 01/29/25 13:43
History of Present Illness
History of Present Illness:
84-year-old male with past medical history of early Alzheimer's, Parkinson's, CAD, hypertension, hyperlipidemia, known aortic stenosis, GERD, krj-exmobcq-orsubcdef diabetes presenting to the emergency department for evaluation after having an
accidental fall at some point overnight, patient does not recall any events from the fall. At present time patient is without any concerns although does note a mild contusion/abrasion to the right lateral orbit. Patient believes he could have been
sleepwalking. Has noted history of multiple falls over the last few years. Recently underwent physical therapy and while he uses a cane family reports that he felt more steady on his feet and that he did not need his cane over the last weeks.
Patient was also recently treated for a urinary tract infection last week and completed a 7-day course of antibiotics.
Following my exam daughter pulled me to the side and states patient does seem little bit more out of it today. No focal symptoms recognized however
Past History
Past History
ED Past Medical History: CAD, COPD, GERD, HTN, Hypercholesterolemia, NIDDM and Other (GI bleed, Chronic back pain, osteoarthritis); Negative Asthma
ED Past Surgical History: Cardiac (CABG)
Social History
Tobacco: Former smoker
Alcohol: None
Drug: None
Personal:
Living: with family
Review of Systems
Review of Systems
All Other Systems: ROS reviewed and negative except as documented in HPI and ROS
Phy Exam
Physical Exam
Physical Exam:
GENERAL: Alert , in no apparent distress
HEAD: Small area of ecchymosis to the right lateral orbit with abrasion just proximal to this
EYE: pupils equal and reactive, 4 mm bilateral, EOMI, no entrapment
NECK: Supple, no midline tenderness
ENT: mmm.
CARDIAC: Regular rate and rhythm .
LUNGS: Clear breath sounds bilaterally, no acute respiratory distress, no wheezes/rales/rhonchi, no chest wall or rib tenderness
ABDOMEN: Soft and without any tenderness
NEUROLOGICAL: Alert and oriented to person place and time
SKIN: Warm and dry, skin intact.
MUSCULOSKELETAL: No edema, well perfused. no signs of trauma
PSYCH: Normal and appropriate interaction.
Scores
Heart Failure Risk
Heart Failure Risk Score: Not Applicable
Heart Score for Chest Pain Patients
STEMI patient?: Not applicable
Withdrawal Assessment of Alcohol
Withdrawal Assessment Completed?: Not applicable
Course
Orders/Labs/Results
Orders:
Orders
01/29/25 13:44
CT Cervical Spine W/o Iv Contr Urgent
Comment:
Reason For Exam: fall, facial trauma
CT Facial Bones W/o Iv Contras Urgent
Comment:
Reason For Exam: fall, facial trauma
CT Head W/o Iv Contrast Urgent
Comment:
Reason For Exam: fall, facial trauma
01/29/25 14:03
Urinalysis Reflex To Culture Urgent
01/29/25 14:04
Orthostatic VS- Treatment ONCE
01/29/25 14:28
Basic Metabolic Panel Urgent
Complete Blood Count/With Diff Urgent
01/29/25 14:31
0.9% Sodium Chloride 1000 ml [Nss] 1,000 ml IV BOLUS
01/29/25 22:15
CT Head W/o Iv Contrast Urgent
Comment:
Reason For Exam: repeat CT for subdural
Abnormal Lab Results
01/29/25
14:28
RBC 3.40 L 10^6/uL
(4.70-6.10)
Hgb 10.5 L g/dL
(13.0-18.0)
Hct 31.3 L %
(39.0-52.0)
Absolute Lymphs (auto) 1.0 L 10^3/uL
(1.2-3.4)
Absolute Monos (auto) 0.8 H 10^3/uL
(0.1-0.6)
Lymphocytes % 17.4 L %
(20.5-51.1)
Monocytes % 13.0 H %
(1.7-9.3)
Carbon Dioxide 21 L mmol/L
(22-30)
BUN 36 H mg/dl
(9-20)
Creatinine 2.0 H mg/dL
(0.7-1.3)
Glucose 102 H mg/dl
(70-99)
01/29/25 14:28
01/29/25 14:28
Vital Signs
Initial and Last Documented VS:
Initial Vital Signs
Temp Pulse Resp BP Pulse Ox
99.2 F 101 16 95/54 100
01/29/25 13:17 01/29/25 13:17 01/29/25 13:17 01/29/25 13:17 01/29/25 13:17
Last Documented Vital Signs
Temp Pulse Resp BP Pulse Ox
99.2 F 68 17 122/54 98
01/29/25 13:17 01/29/25 14:57 01/29/25 14:57 01/29/25 14:57 01/29/25 14:57
MDM/Problems Addressed
Differential Diagnosis Includes:
Accidental trip and fall, head/facial contusion, concussion, intracranial bleeding, progression of Parkinson's/Alzheimer's, UTI, orthostasis
MDM/Problems Addressed:
84-year-old male presenting to the ER for evaluation of minor head injury occurring in a fall at some point between midnight and upon awakening this morning around 8 AM. Patient does not recollect events from the fall. Has a noted right
periorbital contusion/abrasion. Daughter concerned patient seems a little bit slower than usual today. Mild hypotension in triage noted. Question orthostasis. Recently treated for urinary tract infection and completed a 7-day course of
antibiotics. Will check labs, urine, orthostatics. CT of the head, facial bones and cervical spine ordered.
Chronic conditions affecting care: Neurological disorder
*Pulse Oximetry
Patient hypoxic: no
*Critical Care Note
Total Time (30-74mins, 75-104mins- exclusive of procedures): 30
comment:
Critical care statement: A total of 30 minutes of critical care time was provided for this patient. This includes management of unstable vital signs, evaluation of the patient at bedside, reviewing the patient's pertinent medical records, discussion
with consultants, review of old EKGs and review of pertinent medical records. This time with separate from time utilized to perform the aforementioned documented procedures
Data Reviewed
Review of Other/Old Records Reveals: Labs
Patient Management
Discussion with other providers: Hospitalist, PCP and Fermenter
Escalation/DeEscalation of care consider admission/obs:
Patient's head CT shows a 4 mm subdural hemorrhage without midline shift or vasogenic edema. Remaining portions of CT show chronic changes only. I discussed the case with Dr. Cohen from neurosurgery who states it is okay for the patient to
stay at this facility and does not need transfer to [facility]. Recommends repeat head CT in 6 hours from the original. Repeat head CT ordered for 1015 this evening. Patient's acute kidney injury. I also updated patient's primary care
provider about these findings.
ED Attending Note
-
Portions of this chart may have been created with voice recognition software.� Occasional wrong word or��sound alike� substitutions may have occurred due to the inherent limitations of voice recognition software.
Discharge Plan
Departure
Patient Disposition: Admit
Date of Disposition: 01/29/25
Time of Disposition: 17:03
Presentation/result/management discussed w/ accepting MD/DO: Hospitalist
Discharge Problem:
Subdural hemorrhage, EDMAR (acute kidney injury)
Prescriptions:
No Action
atorvastatin [Lipitor] 40 mg Tablet
40 mg PO QPM
carbidopa-levodopa 25-100 mg Tablet
1 tab PO TID
aspirin 81 mg Tablet,Delayed Release (Dr/Ec)
81 mg PO DAILY
therapeutic multivitamin Tablet
1 tab PO DAILY
ferrous sulfate 325 mg (65 mg iron) Tablet
325 mg PO DAILY
cholecalciferol (vitamin D3) [Vitamin D3] 25 mcg (1,000 unit) Tablet
25 mcg PO DAILY
omeprazole 20 mg Tablet,Delayed Release (Dr/Ec)
20 mg PO DAILY
omega 5-tue-ktj-fish oil [Fish Oil] 1,000 mg (120 mg-180 mg) Capsule
1 cap PO DAILY
thiamine HCl (vitamin B1) 100 mg Tablet
100 mg PO DAILY Qty: 0 0RF
tamsulosin 0.4 mg Capsule
0.4 mg PO DAILY Qty: 0 0RF
Referrals:
Sabina Garzon CRNP [Family Provider] -
Interventions
Interventions:
*Risk Screen - Suicide Last Done: 01/29/25 13:17
*General Assessment Last Done: 01/29/25 13:17
*Neglect/Abuse Screening Last Done: 01/29/25 13:17
*ED COVID-19 Vaccine History Last Done: 01/29/25 13:17
ED-Musculoskeletal Assessment Last Done: 01/29/25 13:50
ED- Neurological Assessment Last Done: 01/29/25 13:50
ED-Skin Assessment Last Done: 01/29/25 13:50
Discharge Date and Time
Print Language: WOLOF
[2025-01-29] MEDS: NSS 1000 IV ×2 (14:34→23:02)
[2025-01-29 14:36] LABS: % Basophils 0.3 % (0-2); % Eosinophils 1.8 % (0-6); % Immature Granulocytes 0.2 % (0-0.5); % Lymphocytes 17.4 % (20.5-51.1); % Neutrophils 67.3 % (42.2-75.2); Absolute Eosinophils 0.1 10^3/uL (0-0.7); Absolute Monocytes 0.8 10^3/uL (0.1-0.6); Hematocrit 31.3 % (39.0-52.0); Hemoglobin 10.5 g/dL (13.0-18.0); Mean Corp Hgb Conc. 33.5 g/dL (33.0-37.0); Mean Corpuscular Hgb 30.9 pg (27.0-31.0); Mean Corpuscular Volume 92.1 fL (80.0-94.0); Mean Platelet Volume 8.8 fL (7.4-10.4); Nucleated Red Blood Cells % 0 % (-); Platelet Count 236 10^3/uL (130-400); Red Cell Dist. Width 14.1 % (11.5-14.5)
[2025-01-29 14:51] LABS: Blood Urea Nitrogen 36 mg/dl (9-20); Calcium 9.6 mg/dl (8.4-10.2); Carbon Dioxide 21 mmol/L (22-30); Chloride 103 mmol/L (98-107); Glucose 102 mg/dl (70-99); Potassium 4.6 mmol/L (3.5-5.1); Sodium 137 mmol/L (135-145)
--- NOTE | 2025-01-29 17:26 | HPS.HSE ---
Family Physician
-
Family Physician: Sabina Garzon
Chief Complaint
-
fall
History of Present Illness
84-year-old male past medical history of Parkinson disease, CAD status post CABG, aortic stenosis, hypertension, CKD, GERD, hyperlipidemia, GI bleeding, cataracts, COPD, presenting with osteoarthritis, chronic back pain, diabetes, presenting with
accidental fall overnight. He does not recall any events from the fall. He denies any complaints but does have a small contusion/abrasion of the right lateral orbit. He believes he could have been sleepwalking. He has been having multiple falls
over the past 2 years. Recently underwent physical therapy and will uses a cane and actually had to use the cane less over the past several weeks.
He does not have any numbness or tingling, focal weakness, headache, blurry vision, difficulty speaking or swallowing.
Completed treatment with 7 days of antibiotic for urinary tract infection last week.
He is a former smoker. Does not drink alcohol anymore.
Medical History
Past Medical History
Past Medical History: Reports Other (Parkinson disease, CAD status post CABG, aortic stenosis, hypertension, CKD, GERD, hyperlipidemia, GI bleeding, cataracts, COPD)
Past Surgical History: Reports None
Social History
Tobacco: Non-smoker
Alcohol: None
Drug: None
Family History
Family History: Not pertinent
Allergies / Home Medications
Allergies reflects when Allergies were last updated in [employer].
Home Medications with original date entered in [employer]
Allergy/Medication List:
Allergies
Allergy/AdvReac Type Severity Reaction Status Date / Time
No Known Allergies Allergy Verified 11/14/23 11:16
Home Medications
aspirin 81 mg tablet,delayed release 81 mg PO DAILY Blood Clot Prevention/Tx 11/14/23
atorvastatin 40 mg tablet (Lipitor) 40 mg PO QPM High Cholesterol 11/14/23
carbidopa 25 mg-levodopa 100 mg tablet 1 tab PO TID parkinson's disease 11/14/23
cholecalciferol (vitamin D3) 25 mcg (1,000 unit) tablet (Vitamin D3) 25 mcg PO DAILY Supplement 11/14/23
ferrous sulfate 325 mg (65 mg iron) tablet 325 mg PO DAILY Supplement 11/14/23
omega 5-ggj-zvf-fish oil 1,000 mg (120 mg-180 mg) capsule (Fish Oil) 1 cap PO DAILY Supplement 11/14/23
omeprazole 20 mg tablet,delayed release 20 mg PO DAILY Gastrointestinal Issue 11/14/23
therapeutic multivitamin 1 tab PO DAILY Supplement 11/14/23
thiamine HCl (vitamin B1) 100 mg tablet 100 mg PO DAILY #0 tabs 11/15/23
tamsulosin 0.4 mg capsule 0.4 mg PO DAILY #0 caps 08/03/24
Review of Systems
-
History Source: Patient
A 12 point ROS was completed and negative except as noted: Yes
Constitutional: Reports No Symptoms
EENT: Reports No Symptoms
Respiratory: Reports No Symptoms
Cardiac: Reports No Symptoms
Abdomen/GI: Reports No Symptoms
: Reports No Symptoms
Musculoskeletal: Reports No Symptoms
Skin: Reports No Symptoms
Neurological: Reports See HPI
Endocrine: Reports No Symptoms
Hematologic/Lymphatic: Reports No Symptoms
Psych: Reports No Symptoms
Physical Exam
Vital Signs
Vital Signs
Temp Pulse Resp BP Pulse Ox
99.2 F 72 17 150/71 97
01/29/25 13:17 01/29/25 17:15 01/29/25 17:15 01/29/25 17:13 01/29/25 17:15
Physical Exam
General: Well Developed, Well Nourished and No Apparent Distress
HEENT: NormoCephalic, Moist mucous membranes and Atraumatic
Respiratory: Clear
Cardiac: S1/S2 and Regular Rhythm; No Murmur or Rub
GI: Soft, Non Tender, Non Distended and Normal Bowel Sounds; No Organomegaly
Rectal: Deferred by Provider
Musculoskeletal: No Clubbing, No Cyanosis and No Edema
Skin: No Rash
Neuro: Nonfocal/grossly intact
Laboratory Results
-
01/29/25 14:28
01/29/25 14:28
Data Reviewed
-
Lab Data: Labs Reviewed by me
Old Records: Reviewed
Impression/Plan
-
IMPRESSION:
PLAN:
# Tiny acute subdural hemorrhage
# Ambulatory dysfunction/fall
-No neurological symptoms
- CT head shows new small round 4 mm focus of high attenuation in the interhemispheric falx between the lateral ventricles not present in October 2023
- Neurosurgery recommends repeat CT scan at 10 PM tonight
- Hold aspirin
# EDMAR on CKD likely prerenal
- Creatinine of 2 from 1.1 previously
- IV fluids
Parkinson's disease
- Continue carbidopa levodopa
- Continue duloxetine
CAD status post CABG
- Hold aspirin
- Continue statin
Aortic stenosis
Essential hypertension
- Continue amlodipine
GERD
- Continue omeprazole
Hyperlipidemia
History of GI bleeding
History of cataracts
COPD
Osteoarthritis
Chronic back pain
- Hold meloxicam
Type 2 diabetes
- Not on medication
BPH
- Continue tamsulosin
Chronic anemia
- Hemoglobin stable 10.5
- Continue iron supplement
DNR/DNI
DVT prophylaxis�SCDs
Regular diet
[2025-01-29 20:03] LABS: Urine Albumin 1+ (Neg - Trace); Urine Bilirubin Negative (Negative); Urine Character Clear (Clear); Urine Color Yellow; Urine Glucose Negative (Negative); Urine Ketone Negative (Negative); Urine Leukocyte Negative (Negative); Urine Nitrite Negative (Negative); Urine Occult Blood 2+ (Negative); Urine Specific Gravity 1.015 (<1.030); Urine Urobilinogen Negative (Neg - 1+)
[2025-01-29 20:10] LABS: Urine Mucus Few; Urine Squamous Cell 0-2 /LPF (Few)
[2025-01-29 20:11] LABS: Urine Bacteria Few (Negative); Urine White Cell 0-2 /HPF (0-5)
[2025-01-29] MEDS: SINEMET 25-100 1 TABLET PO (23:02)
[2025-01-30 03:37] VITALS: BP 149/55
[2025-01-30 06:00] VITALS: BMI 23.4
[2025-01-30 06:33] LABS: % Basophils 0.2 % (0-2); % Eosinophils 4.3 % (0-6); % Immature Granulocytes 0.4 % (0-0.5); % Lymphocytes 44.3 % (20.5-51.1); % Monocytes 13.2 % (1.7-9.3); % Neutrophils 37.6 % (42.2-75.2); Absolute Eosinophils 0.2 10^3/uL (0-0.7); Absolute Monocytes 0.6 10^3/uL (0.1-0.6); Absolute Neutrophils 1.7 10^3/uL (1.4-6.5); Hematocrit 28.7 % (39.0-52.0); Hemoglobin 9.6 g/dL (13.0-18.0); Mean Corp Hgb Conc. 33.4 g/dL (33.0-37.0); Mean Corpuscular Volume 92.6 fL (80.0-94.0); Mean Platelet Volume 8.9 fL (7.4-10.4); Nucleated Red Blood Cells % 0 % (-); Platelet Count 238 10^3/uL (130-400); White Blood Cell Count 4.5 10^3/uL (4.8-10.8)
[2025-01-30 07:07] LABS: ALT (SGPT) 30 U/L (0-50); AST (SGOT) 34 U/L (17-59); Albumin 3.8 g/dl (3.5-5.0); Alkaline Phosphatase 72 U/L (38-126); Blood Urea Nitrogen 28 mg/dl (9-20); Calcium 8.9 mg/dl (8.4-10.2); Carbon Dioxide 24 mmol/L (22-30); Chloride 107 mmol/L (98-107); Estimated Creatinine Clearance 30 ml/min; Glucose 116 mg/dl (70-99); Potassium 4.3 mmol/L (3.5-5.1); Sodium 139 mmol/L (135-145); Total Bilirubin 0.3 mg/dl (0.2-1.3); Total Protein 5.7 g/dl (6.3-8.2); eGFR 45.06
[2025-01-30 07:20] VITALS: BP 153/69
--- NOTE | 2025-01-30 07:33 | W.PN.HOSP.TC ---
Addendum entered and electronically signed by Andre Whalen MD 01/30/25 23:35:
Attending Addendum-
I saw and evaluated the patient. I reviewed the resident�s note and agree with findings and plan as documented in the resident�s note. Sub: Seen with son present. Patient has no compaints. Denies MIRANDA vision changes neuro sxs. Wants to go home Full 12
point ROS reviewed and negative except as documented Exam: Vitals reviewed in chart GEN-NAD heart RRR lungs clear abd soft LE no edema Neuro AAO x 2 MS 01/28
# Tiny acute subdural hemorrhage
# Ambulatory dysfunction/fall
-No neurological symptoms
- CT head shows new small round 4 mm focus of high attenuation in the interhemispheric falx between the lateral ventricles not present in October 2023
- repeat CT scan - unchanged reviewed
- Hold aspirin x 1 week the restart
- appreciate NS input- no further scans
PT - rec SNF patient and POA refusing
# EDMAR on CKD likely prerenal
- Creatinine of 2 from 1.1 previously
- resolving
#Parkinson's disease
- Continue carbidopa levodopa
- Continue duloxetine
#CAD status post CABG
- Hold aspirin restart in one week
- Continue statin
Aortic stenosis
Essential hypertension
- Continue amlodipine
GERD
- Continue omeprazole
Hyperlipidemia
History of GI bleeding
History of cataracts
COPD
Osteoarthritis
Chronic back pain
- Hold meloxicam
Type 2 diabetes
- Not on medication
BPH
- Continue tamsulosin
Chronic anemia
- Hemoglobin stable 10.5
- Continue iron supplement
DNR/DNI
DVT prophylaxis�SCDs
Regular diet
[facility]po DC to [facility]
Patient consented to discuss, was with POA, time spent explanation of advance directives, changes in health status, patient�s health care wishes if the patient becomes unable to make health decisions, goals of care, code status, and prognosis,
confirmed DNR - 16 minutes
Time spent coordinating care, DC planning, review of DC plan of care with resident, transition of care, review of records, med rec/scripts sent electronically, consults, notes, d/w consultants, nursing, family, and CM time separate from ACP � 32 mins
Original Note:
Today's Communication/Plan
-
Possible discharge today.
Assessment / Plan
Assessment / Plan
Assessment
84-year-old male with PMHx significant for CAD s/p CABG, aortic stenosis, Parkinson's disease, CKD, GI bleeds, COPD, diabetes presented to the hospital for evaluation of mechanical fall.
Plan
1. Acute subdural hemorrhage
Secondary to mechanical fall
CT head�evidence of new small round 4 mm focus of high attenuation in the septum pellucidum
No focal neurological deficits
Repeat CT scan�no interval increase in the size of the hematoma.
Hold aspirin for 1 week, can then resume.
PT/OT-recommend SNF
2. EDMAR on CKD
Creatinine now at baseline 1.5
IV fluids
3. Parkinson's
Continue carbidopa/levodopa
4. CAD s/p CABG
Continue statin
Aspirin on hold
5. Essential hypertension
Continue amlodipine
6. GERD
Continue omeprazole
7. Chronic anemia
Hemoglobin stable at 10.5
Continue FeSO4
Anticipated Discharge: Within 24 hours
Subjective/Interval History
-
Date of Service: January 30, 2025
Objective Data
-
Labs:
Laboratory Results
01/30/25
05:48
WBC 4.5 L
Hgb 9.6 L
Hct 28.7 L
Plt Count 238
Sodium 139
Potassium 4.3
Chloride 107
Carbon Dioxide 24
BUN 28 H
Creatinine 1.5 H
Glucose 116 H
Calcium 8.9
Total Bilirubin 0.3
AST 34
ALT 30
Alkaline Phosphatase 72
Vital Signs:
Vital Signs
Temp Pulse Resp BP Pulse Ox
98.9 F 71 20 149/55 97
01/30/25 03:37 01/30/25 03:37 01/30/25 03:37 01/30/25 03:37 01/30/25 03:37
Physical Exam
-
General: No Apparent Distress
HEENT: Other (Contusion around the right eye)
Respiratory: Clear to Auscultation
Cardiac: Regular Rhythm and S1/S2
GI: Soft, Nontender, Nondistended and Normal Bowel Sounds
Skin: Warm and Dry
Neuro: Awake, Alert, Oriented (Not oriented to time, place), Nonfocal/Grossly Intact and No Sensory Deficits
[2025-01-30] MEDS: FLOMAX 0.4 MG PO (09:36)
[2025-01-30] MEDS: CYMBALTA DELAYED RELEASE 30 MG PO (09:36)
[2025-01-30] MEDS: ARICEPT 5 MG PO (09:36)
[2025-01-30] MEDS: PROTONIX 40 MG PO (09:36)
[2025-01-30] MEDS: NORVASC 10 MG PO (09:36)
[2025-01-30] MEDS: FEOSOL 325 MG PO (09:36)
[2025-01-30] MEDS: SINEMET 25-100 1 TABLET PO ×2 (09:36→15:44)
[2025-01-30 11:05] VITALS: BP 140/59
--- NOTE | 2025-01-30 12:12 | CON.NS ---
Consultation
-
Date/Time Consultation Performed: 01/30/2025 12:30pm
Chief Complaint
-
fall
History of Present Illness
84 year old male with PMH Parkinson disease, CAD status post CABG, aortic stenosis, hypertension, CKD, GERD, hyperlipidemia, GI bleed, cataracts, COPD, osteoarthritis, chronic back pain, diabetes, who presented to ER after a fall. He currently
offers no complaints. He states he has had multiple falls in the last two years and recently worked with PT and began using a cane. He denies any numbness or weakness, no headache or dizziness. His workup revealed small round 4 mm focus of high
attenuation in the interhemispheric falx suggestive of subdural hematoma and we have been consulted. He does take aspirin at baseline.
Review of Systems
-
12 point review of systems negative unless otherwise noted in HPI
Medication and Allergies
Home Medications
Home Medications
�Medication �Instructions �Recorded
aspirin 81 mg tablet,delayed 81 mg PO DAILY Blood Clot 11/14/23
release Prevention/Tx
atorvastatin 40 mg tablet (Lipitor) 40 mg PO QPM High Cholesterol 11/14/23
carbidopa 25 mg-levodopa 100 mg 1 tab PO TID parkinson's disease 11/14/23
tablet
ferrous sulfate 325 mg (65 mg 325 mg PO DAILY Supplement 11/14/23
iron) tablet
omega 5-hsc-yzl-fish oil 1,000 mg 1 cap PO DAILY Supplement 11/14/23
(120 mg-180 mg) capsule (Fish Oil)
therapeutic multivitamin 1 tab PO DAILY Supplement 11/14/23
tamsulosin 0.4 mg capsule 0.4 mg PO DAILY #0 caps 08/03/24
amlodipine 10 mg tablet 10 mg PO DAILY 01/29/25
donepezil 5 mg tablet 5 mg PO DAILY 01/29/25
duloxetine 30 mg capsule,delayed 30 mg PO DAILY 01/29/25
release sprinkle
famotidine 20 mg tablet 20 mg PO DAILY 01/29/25
meloxicam 15 mg tablet 15 mg PO DAILY 01/29/25
pantoprazole 40 mg tablet,delayed 40 mg PO DAILY 01/29/25
release
Allergies
Allergies
Allergy/AdvReac Type Severity Reaction Status Date / Time
No Known Allergies Allergy Verified 11/14/23 11:16
Physical Exam
-
Exam:
AAOx3
right periorbital ecchymosis
EOMI
Cn 2-12 GI
motor 5/5 throughout
sensation intact to LT
hearing GI
speech clear and conversant
breathing non labored
Head CT:
HEAD CT:
1. New small round 4 mm focus of high attenuation in the interhemispheric falx between the lateral ventricles which was not present in October 2023 suggesting and is most likely a tiny acute subdural hemorrhage. A complex proteinaceous colloid
cyst is an alternative diagnostic possibility.
2. SEVERE WHITE MATTER LEUKOARAIOSIS in both cerebral hemispheres.
3. Moderate bilateral temporal lobe volume loss consistent with a CHRONIC NEURODEGENERATIVE DISEASE.
Repeat head CT:
IMPRESSION:
1. Small 5 mm circumscribed focus of high attenuation in the interhemispheric falx between the lateral ventricles which appears unchanged from at 4:00 PM. Diagnostic possibilities are (1) a small acute subdural hemorrhage or (2) a complex
proteinaceous colloid cyst.
2. Severe white matter leukoaraiosis throughout both cerebral hemispheres.
3. Moderate diffuse cerebral and cerebellar volume loss suggesting a chronic neurodegenerative disease.
Problems
-
Problem Status Onset Code
EDMAR (acute kidney injury) N17.9
Subdural hemorrhage I62.00
Assessment / Plan
-
small focus subdural hematoma at septum pellucidum
--stable on repeat imaging
--no further scans or follow up with us indicated
--no neurosurgical intervention indicated
--hold aspirin for 1 week then ok to restart
--PT/OT
--ok for discharge from our standpoint
--discussed with Dr. Cohen
--will sign off
--- NOTE | 2025-01-30 12:49 | CM ---
Addendum entered by Ophelia Hernandez RN 01/30/25 15:29:
PT OT evals done recommended SNF.Spoke with Nenita and Andrews reviewed PT OT.Explained pt is an observation and not a waiver Medicare candidate. Nenita said pts Medicare has been accidently dropped and has not been resolved yet.Nenita and Andrews
requested dc and they will drive him home. notified to call siblings with update as requested.
Declined VN due to insurance being dropped. Dgt will resume PT after Medicare resumed.
PLAN Return to [facility] with care givers from 2-6 and 3 check in daily.
Original Note:
Alert awake oriented lives at [facility] . He has home health aids from 2 pm to 8 pm at night.Spoke with son Andrews he was notified on observation letter . Andrews did not sign form.PT OT to evaluate pt. Offered VN son said he will think
about VN. Pt uses cane.
Pt has PT at [facility] skilled rehab
Pharmacy Tomy
PCP Dr Garzon
PLAN Return to [facility]
[2025-01-30 13:16] VITALS: BP 115/54; BP 118/55; PULSE 71; O2SAT 98
[2025-01-30 13:20] VITALS: BP 115/54; BP 118/55; PULSE 70; O2SAT 98
[2025-01-30 15:20] VITALS: BP 121/58
[2025-01-30] MEDS: NSS IV (15:46)
[2025-01-30] MEDS: LIPITOR 40 MG PO (17:11)
--- NOTE | 2025-01-30 20:50 | W.DCSUMMARY ---
Addendum entered and electronically signed by Andre Whalen MD 01/31/25 23:45:
Read, reviewed, and agree. See same day progress note for additional details.
Jey Whalen MD
Original Note:
Documented by User: Burke Acevedo MD, Resident 01/31/25 18:42
Discharge Summary
Discharge Data
Date of Admission: 01/29/25
Date of Discharge: 01/30/25
-
Pending Results: No
Hospital Course
Discharging Physician : Dr. Whalen, Dr. Turk.
Disposition : [facility], with patient arranged assisted living
Primary care physician : Dr. Sabina Garzon
Principal Discharge diagnosis : Acute subdural hemorrhage
Chronic Discharge diagnosis : Parkinson's, CKD, essential hypertension, GERD, chronic anemia
Hospital Course : 84-year-old male past medical history of Parkinson disease, CAD status post CABG, aortic stenosis, hypertension, CKD, GERD, hyperlipidemia, GI bleeding, cataracts, COPD, presenting with osteoarthritis, chronic back pain, diabetes,
presenting with accidental fall. No focal neurological deficits.CT head shows new small round 4 mm focus of high attenuation in the interhemispheric falx between the lateral ventricles. Neurosurgery consulted�recommend repeat CT scan, which showed
no interval increase in the size of the hematoma. Patient also had contusion around the right orbit. CT facial bones showed no evidence of acute intraorbital injury/facial bone fracture. Patient's aspirin has been held. Advised to restart it
after a week. PT/OT consulted�recommended SNF but POA refusing, requesting to be discharged to independent living at [facility] and they already have arranged for home PT/OT. Patient's labs and vitals were monitored throughout the hospital stay.
Patient has been discharged when clinically stable. Rest of his chronic conditions have been managed as below.
-EDMAR on CKD likely prerenal-resolved
-Parkinson's disease- carbidopa levodopa
-CAD s/p CABG
Continue statin
Aspirin on hold
-Essential hypertension -amlodipine
� GERD�omeprazole
� Chronic anemia�hemoglobin monitored, FeSO4
Important imaging findings :
HEAD CT:
1. New small round 4 mm focus of high attenuation in the interhemispheric falx between the lateral ventricles which was not present in October 2023 suggesting and is most likely a tiny acute subdural hemorrhage. A complex proteinaceous colloid
cyst is an alternative diagnostic possibility.
2. SEVERE WHITE MATTER LEUKOARAIOSIS in both cerebral hemispheres.
3. Moderate bilateral temporal lobe volume loss consistent with a CHRONIC NEURODEGENERATIVE DISEASE.
Repeat head CT:
IMPRESSION:
1. Small 5 mm circumscribed focus of high attenuation in the interhemispheric falx between the lateral ventricles which appears unchanged from at 4:00 PM. Diagnostic possibilities are (1) a small acute subdural hemorrhage or (2) a complex
proteinaceous colloid cyst.
2. Severe white matter leukoaraiosis throughout both cerebral hemispheres.
3. Moderate diffuse cerebral and cerebellar volume loss suggesting a chronic neurodegenerative disease.
FACIAL BONES CT:
1. Mild preseptal soft tissue swelling over the right orbit suggesting a mild right orbital contusion.
2. No CT evidence for acute intraorbital injury.
3. No CT evidence for acute facial bone fracture.
CERVICAL SPINE CT:
1. 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
2. Mild spinal cord compression and central canal stenosis at C3/C4, C4/C5, and C5/C6.
3. SEVERE BILATERAL NEURAL FORAMINAL NARROWING at C3/C4, C4/C5, and C5/C6.
4. Mild to moderate central canal stenosis at T1/T2.
Discharge Plan
-
Patient Disposition: Home (Routine Discharge)
Discharge Diagnosis/Procedures: Acute subdural hemorrhage, EDMAR on CKD, Parkinson's, essential hypertension, GERD, chronic anemia
Diet: Low Sodium
Activity: With assistance
Driving Restrictions: As prior to admission
Bathing Restrictions: OK to Shower
Other Services: PT and OT
Referrals:
Sabina Garzon CRNP [Family Provider] - in less than 1 week
Additional Discharge Medication Instructions: Hold aspirin for 1 week and resume later.
Prescriptions:
Continued
atorvastatin [Lipitor] 40 mg Tablet
40 mg PO QPM
carbidopa-levodopa 25-100 mg Tablet
1 tab PO TID
therapeutic multivitamin Tablet
1 tab PO DAILY
ferrous sulfate 325 mg (65 mg iron) Tablet
325 mg PO DAILY
omega 2-fdb-dug-fish oil [Fish Oil] 1,000 mg (120 mg-180 mg) Capsule
1 cap PO DAILY
tamsulosin 0.4 mg Capsule
0.4 mg PO DAILY Qty: 0 0RF
amlodipine 10 mg Tablet
10 mg PO DAILY
duloxetine 30 mg Capsule, Delayed Rel Sprinkle
30 mg PO DAILY
donepezil 5 mg Tablet
5 mg PO DAILY
meloxicam 15 mg Tablet
15 mg PO DAILY
famotidine 20 mg Tablet
20 mg PO DAILY
pantoprazole 40 mg Tablet,Delayed Release (Dr/Ec)
40 mg PO DAILY
Held
aspirin 81 mg Tablet,Delayed Release (Dr/Ec)
81 mg PO DAILY
Hold Instructions: Resume on 02/06/25.
Discharge Orders:
Discharge Patient (As Directed); Ordered 01/30/25
Ordered By: Burke Acevedo
Discharge Date and Time
Discharge Date/Time: 01/30/25 19:06
Print Language: GREEK

Documented by User: Andre Whalen MD 01/31/25 23:44
Discharge Summary
Discharge Data
Date of Admission: 01/29/25
Date of Discharge: 01/31/25
Discharge Plan
-
Patient Disposition: Home (Routine Discharge)
Discharge Diagnosis/Procedures: Acute subdural hemorrhage, EDMAR on CKD, Parkinson's, essential hypertension, GERD, chronic anemia
Diet: Low Sodium
Activity: With assistance
Driving Restrictions: As prior to admission
Bathing Restrictions: OK to Shower
Other Services: PT and OT
Referrals:
Sabina Garzon CRNP [Family Provider] - in less than 1 week
Additional Discharge Medication Instructions: Hold aspirin for 1 week and resume later.
Prescriptions:
Continued
atorvastatin [Lipitor] 40 mg Tablet
40 mg PO QPM
carbidopa-levodopa 25-100 mg Tablet
1 tab PO TID
therapeutic multivitamin Tablet
1 tab PO DAILY
ferrous sulfate 325 mg (65 mg iron) Tablet
325 mg PO DAILY
omega 5-jiv-xmw-fish oil [Fish Oil] 1,000 mg (120 mg-180 mg) Capsule
1 cap PO DAILY
tamsulosin 0.4 mg Capsule
0.4 mg PO DAILY Qty: 0 0RF
amlodipine 10 mg Tablet
10 mg PO DAILY
duloxetine 30 mg Capsule, Delayed Rel Sprinkle
30 mg PO DAILY
donepezil 5 mg Tablet
5 mg PO DAILY
meloxicam 15 mg Tablet
15 mg PO DAILY
famotidine 20 mg Tablet
20 mg PO DAILY
pantoprazole 40 mg Tablet,Delayed Release (Dr/Ec)
40 mg PO DAILY
Held
aspirin 81 mg Tablet,Delayed Release (Dr/Ec)
81 mg PO DAILY
Hold Instructions: Resume on 02/06/25.
Discharge Orders:
Discharge Patient (As Directed); Ordered 01/30/25
Ordered By: Burke Acevedo
Discharge Date and Time
Discharge Date/Time: 01/30/25 19:06
Print Language: GREEK
== END 2025-01-30 19:06 | disposition home or self-care (01) ==
LOC: 4 EAST ACU 17:45
PROVIDERS: Physician Assistant Medical; Student in an Organized Health Care Education/Training Program; ADMITTING PHYSICIAN Hospitalist; ATTENDING PHYSICIAN Family Medicine; EMERGENCY PHYSICIAN Emergency Medicine; FAMILY PHYSICIAN Nurse Practitioner Primary Care; OTHER PHYSICIAN Nurse Practitioner Family
DX: S06.5XAA Traumatic subdural hemorrhage with loss of consciousness status unknown, initial encounter (principal); R29.6 Repeated falls; S00.11XA Contusion of right eyelid and periocular area, initial encounter; G30.9 Alzheimer's disease, unspecified; F02.80 Dementia in other diseases classified elsewhere, unspecified severity, without behavioral disturbance, psychotic disturbance, mood disturbance, and anxiety; I25.10 Atherosclerotic heart disease of native coronary artery without angina pectoris; E11.22 Type 2 diabetes mellitus with diabetic chronic kidney disease; I12.9 Hypertensive chronic kidney disease with stage 1 through stage 4 chronic kidney disease, or unspecified chronic kidney disease; G20.A1 Parkinson's disease without dyskinesia, without mention of fluctuations; I35.0 Nonrheumatic aortic (valve) stenosis; K21.9 Gastro-esophageal reflux disease without esophagitis; J44.9 Chronic obstructive pulmonary disease, unspecified; G89.29 Other chronic pain; N18.9 Chronic kidney disease, unspecified; N40.0 Benign prostatic hyperplasia without lower urinary tract symptoms; D64.9 Anemia, unspecified; M19.90 Unspecified osteoarthritis, unspecified site; M48.02 Spinal stenosis, cervical region; M50.021 Cervical disc disorder at C4-C5 level with myelopathy; M50.01 Cervical disc disorder with myelopathy, high cervical region; E78.00 Pure hypercholesterolemia, unspecified; W19.XXXA Unspecified fall, initial encounter; Y93.9 Activity, unspecified; Y92.099 Unspecified place in other non-institutional residence as the place of occurrence of the external cause; I95.9 Hypotension, unspecified; N17.9 Acute kidney failure, unspecified; Z95.1 Presence of aortocoronary bypass graft; Z87.891 Personal history of nicotine dependence; Z87.440 Personal history of urinary (tract) infections; Z66 Do not resuscitate; Z87.19 Personal history of other diseases of the digestive system; Z79.899 Other long term (current) drug therapy; Z79.82 Long term (current) use of aspirin; Z79.1 Long term (current) use of non-steroidal anti-inflammatories (NSAID)
CPT/HCPCS: 70450; 70486; 72125; 80048; 80053; 81003; 81015; 85025; 97163; 97167; 99291; G0378